=== PATIENT | female | born 1965 | race Caucasian/White ===

== ENCOUNTER 2017-03-21 09:30 | Emergency (ER) | payer MEDICAID, SELFPAY ==
[2017-03-21 10:00] VITALS: BP 100/78; PULSE 122; RESP 20; TEMP 37.1; O2SAT 97; BMI 36.8
--- NOTE | 2017-03-21 10:08 | HMH.EDUTC ---
[facility] [place] Disposition Clinical Impression: Uvulitis Disposition: Home, Self-Care Condition on Discharge: Good Instructions: DI for Pharyngitis/Tonsillopharyngitis -- Adult Additional Instructions: * Start antibiotic DAY and be sure to take as ordered for the FULL length of time although you should start to feel better in 24-48 hours. * change toothbrush and toothpaste 24-48 hours after starting antibiotic * Monitor Temp. Tylenol every 4 hours as needed no more then 5 times a day or 4000mg in 24 hours and/or ibuprofen every 6 hours as needed no more then 3200mg in 24 hours (as long as your primary care doctor has told you that it is ok to take both) for fever/aches/pain. ER if fever no less than 101 despite tylenol and Ibuprofen * Encourage fluids, water, gatorade, powerade, pedialyte if /toddler/child * cold fluids, popsicles, ice cream feel good * * Your throat swab was sent for culture. Those results are typically sent to your primary care. Be sure to follow up in 2-3 days if no improvement so they can review those results and treat if necessary. If you don't have primary care, I recommend you get one but in the mean time, you will have to return to a walk in clinic. Prescriptions: Amoxicillin [Amoxicillin 875MG Tab] 875 mg PO Q12H #20 tab Referrals: Geoffrey Brar [Primary Care Provider] - (IMMEDIATELY for new or worsening symptoms OR no noticeable improvement over the next 48-72 hours. 911 for difficulty breathing or swallowing.) Time of Disposition: 10:17 Medical Decision Making Vital Signs: 03/21/17 10:00 Temperature 98.8 F Temperature Source Oral Pulse Rate [Right Brachial] 122 H Respiratory Rate 20 Blood Pressure [Right Arm] 100/78 Blood Pressure Mean [Right Arm] 85 Blood Pressure Source [Right Arm] Automatic Cuff Blood Pressure Position [Right Arm] Sitting 02 Sat by Pulse Oximetry 97 Oxygen Delivery Method Room Air - Lab Data Flu A neg Flu B neg Strep neg - Edin Inquiry Pt receiving controlled substance: No [facility] [place] HPI - General Stated complaint: congested sore throat cough Time Seen by Provider: 03/21/17 09:50 Mode of Arrival: Ambulatory Source of Information: Patient Limitations: No Limitations Description of Symptoms (Recalled from Triage Doc. by RN): Sore throat, body aches, cough x 3 days HEENT Symptoms (Recalled from RN notes): Yes Resp Symptoms (Recalled from RN notes): Yes Skin Symptoms (Recalled from RN notes): No MS Symptoms (Recalled from RN notes): No Functional Status (Recalled from RN notes): na - History of Present Illness Provider Complaint: c/o mainly my throat . Woke up Tuesday, 2 days ago, with scratchy throat. Developed into mild nonprod cough as well. Woke up yesterday w/ really sore throat, aches, chills. Cough unchanged. Tylenol/ibuprofen not helping w/ sore throat. Worried about strep. Has not had flu vaccine. No known sick contacts. - Related Data Previous Rx's Medication Instructions Recorded Amoxicillin [Amoxicillin 875MG Tab] 875 mg PO Q12H #20 tab 03/21/17 Allergies Allergy/AdvReac Type Severity Reaction Status Date / Time No Known Allergies Allergy Verified 03/21/17 10:05 - Worker's Comp Is this a Worker's Comp case?: No Is this an [employer] Worker's Comp?: No Is this a [facility] Worker's Comp?: No [facility] History I have reviewed the patient's past medical history: Yes (arthritis, depression) Medical History: Reports:: Gastroesophageal Reflux Disease, Hyperlipidemia Other Surgeries: Yes: Tubal Ligation, Other (lei, back 2002) - *Social History Smoking Status: Current every day smoker Tobacco Type: cigarettes Alcohol Intake: never - Psychiatric History Expresses thoughts of harming self/others: None Suicide Plan Description: No Plan ROS Obtained: Yes Systems reviewed as appropriate & no additional complaints - Constitutional Reports anorexia ( a little , drinking well), Reports body ache(s), Reports fatigue, Denies chills, Denies feve
--- NOTE | 2017-03-21 10:11 | ED_ITS ---
[facility] [place] Clinical Impression: Uvulitis Disposition: Home, Self-Care Condition on Discharge: Good Instructions: DI for Pharyngitis/Tonsillopharyngitis -- Adult Additional Instructions: * Start antibiotic DAY and be sure to take as ordered for the FULL length of time although you should start to feel better in 24-48 hours. * change toothbrush and toothpaste 24-48 hours after starting antibiotic * Monitor Temp. Tylenol every 4 hours as needed no more then 5 times a day or 4000mg in 24 hours and/or ibuprofen every 6 hours as needed no more then 3200mg in 24 hours (as long as your primary care doctor has told you that it is ok to take both) for fever/aches/pain. ER if fever no less than 101 despite tylenol and Ibuprofen * Encourage fluids, water, gatorade, powerade, pedialyte if /toddler/ child * cold fluids, popsicles, ice cream feel good * * Your throat swab was sent for culture. Those results are typically sent to your primary care. Be sure to follow up in 2-3 days if no improvement so they can review those results and treat if necessary. If you don't have primary care , I recommend you get one but in the mean time, you will have to return to a walk in clinic. Prescriptions: Amoxicillin [Amoxicillin 875MG Tab] 875 mg PO Q12H #20 tab Referrals: Geoffrey Brar [Primary Care Provider] - (IMMEDIATELY for new or worsening symptoms OR no noticeable improvement over the next 48-72 hours. 911 for difficulty breathing or swallowing.) Time of Disposition: 10:17 Medical Decision Making Vital Signs: 03/21/17 10:00 Temperature 98.8 F Temperature Source Oral Pulse Rate [Right Brachial] 122 H Respiratory Rate 20 Blood Pressure [Right Arm] 100/78 Blood Pressure Mean [Right Arm] 85 Blood Pressure Source [Right Arm] Automatic Cuff Blood Pressure Position [Right Arm] Sitting 02 Sat by Pulse Oximetry 97 Oxygen Delivery Method Room Air - Lab Data Flu A neg Flu B neg Strep neg - Edin Inquiry Pt receiving controlled substance: No [facility] [place] - General Stated complaint: congested sore throat cough Time Seen by Provider: 03/21/17 09:50 Mode of Arrival: Ambulatory Source of Information: Patient Limitations: No Limitations Description of Symptoms (Recalled from Triage Doc. by RN): Sore throat, body aches, cough x 3 days HEENT Symptoms (Recalled from RN notes): Yes Resp Symptoms (Recalled from RN notes): Yes Skin Symptoms (Recalled from RN notes): No MS Symptoms (Recalled from RN notes): No Functional Status (Recalled from RN notes): na - History of Present Illness Provider Complaint: c/o mainly my throat . Woke up Tuesday, 2 days ago, with scratchy throat. Developed into mild nonprod cough as well. Woke up yesterday w / really sore throat, aches, chills. Cough unchanged. Tylenol/ibuprofen not helping w/ sore throat. Worried about strep. Has not had flu vaccine. No known sick contacts. - Related Data Previous Rx's Medication Instructions Recorded Amoxicillin [Amoxicillin 875MG Tab] 875 mg PO Q12H #20 tab 03/21/17 Allergies Allergy/AdvReac Type Severity Reaction Status Date / Time No Known Allergies Allergy Verified 03/21/17 10:05 - Worker's Comp Is this a Worker's Comp case?: No Is this an [facility] Worker's Comp?: No Is this a [facility] Worker's Comp?: No [facility] History I have reviewed the patient's past medical history: Yes (arthritis, depression) Medical Hi
[2017-03-21 10:18] LABS: UTC Influenza A Antigen Negative (Negative); UTC Influenza B Antigen Negative (Negative)
[2017-03-21 10:19] LABS: UTC Strep Screen (Rapid) Negative (Negative)
== END 2017-03-21 10:31 | disposition home or self-care (01) ==
PROVIDERS: Emergency Provider Nurse Practitioner Family; Family Provider Internal Medicine; PCP Internal Medicine
DX: K12.2 Cellulitis and abscess of mouth (principal); F17.210 Nicotine dependence, cigarettes, uncomplicated
CPT/HCPCS: 87275; 87276; 87430; 87804; 87880; 99202

== ENCOUNTER → 2017-04-28 11:32 | Outpatient (CLI) | payer MEDICAID, SELFPAY ==
[2017-04-28 13:12] LABS: Thyroid Stimulating Hormone 1.82 uIU/ml (0.358-3.740)
[2017-04-28 15:45] LABS: Hematocrit 40.8 % (37.0-47.0); Mean Corpuscular Hemoglobin 27.4 pg (27.0-31.2); Mean Corpuscular Volume 85.7 fl (81-99); Red Blood Count 4.76 M/mm3 (4.20-5.40); White Blood Count 11.4 K/mm3 (4.8-10.8)
[2017-04-28 15:46] LABS: Basophils % 0.3 % (0.1-2.0); Eosinophils # 0.1 K/mm3 (0.0-0.4); Eosinophils % 1.1 % (0.1-12.0); Lymphocytes % 19.7 K/mm3 (10-50); Monocytes # 0.8 K/mm3 (0.1-1.0); Monocytes % 6.7 % (1.7-9.3); Neutrophils # 8.2 K/mm3 (1.8-7.8); Platelet Count 318 K/mm3 (142-424); Red Cell Distribution Width 12.6 % (11.5-17.5)
== END ==
PROVIDERS: PCP Internal Medicine; Visit Provider Obstetrics & Gynecology
DX: N93.8 Other specified abnormal uterine and vaginal bleeding (principal); R10.2 Pelvic and perineal pain; Z01.419 Encounter for gynecological examination (general) (routine) without abnormal findings
CPT/HCPCS: 36415; 84443; 85025

== ENCOUNTER → 2017-05-02 12:58 | Outpatient (CLI) | payer MEDICAID, SELFPAY ==
--- NOTE | 2017-05-02 13:03 | US_ITS ---
US transvaginal HISTORY: Dysfunctional uterine bleeding ITS.REASON: dub, pelvic pain ORDERING PHYSICIAN: Osmani Damico MD PATIENT AGE: 51 years COMPARISON: None FINDINGS: The uterus is 10 x 5.5 x 7.2 cm with a combined endometrial thickness of 18 mm. No obvious uterine mass. The left ovary is 4.7 x 3.7 x 5.3 cm and contains a 3.6 cm cyst. The right ovary is 2.4 x 1.7 cm. and has an unremarkable appearance. No cul-de-sac fluid. IMPRESSION: 1. Enlarged uterus with thickened endometrium 2. 3.6 cm left ovarian cyst
== END ==
PROVIDERS: Family Provider Internal Medicine; PCP Internal Medicine; Visit Provider Obstetrics & Gynecology
DX: N93.8 Other specified abnormal uterine and vaginal bleeding (principal); R10.2 Pelvic and perineal pain
CPT/HCPCS: 76830

== ENCOUNTER → 2017-05-31 08:45 | Outpatient (CLI) | payer MEDICAID, SELFPAY ==
[2017-05-31 08:47] LABS: Microscopic, Urine URINE MICROSCOPIC (MICROSCOPIC)
[2017-05-31 09:20] LABS: Basophils % 0.4 % (0.1-2.0); Eosinophils # 0.2 K/mm3 (0.0-0.4); Eosinophils % 1.7 % (0.1-12.0); Hematocrit 42.3 % (37.0-47.0); Hemoglobin 13.2 g/dL (12.2-16.2); Lymphocytes # 2.3 K/mm3 (0.7-4.5); Mean Corpuscular HGB Conc 31.1 g/dL (31.8-35.4); Mean Corpuscular Hemoglobin 26.9 pg (27.0-31.2); Mean Corpuscular Volume 86.2 fl (81-99); Mean Platelet Volume 8.4 fl (7.4-10.4); Monocytes # 0.6 K/mm3 (0.1-1.0); Monocytes % 6.6 % (1.7-9.3); Neutrophils # 6.5 K/mm3 (1.8-7.8); Neutrophils % 67.4 % (37.0-80.0); Platelet Count 294 K/mm3 (142-424); Red Cell Distribution Width 12.7 % (11.5-17.5); White Blood Count 9.6 K/mm3 (4.8-10.8)
[2017-05-31 09:25] LABS: Appearance,Urine CLEAR (Clear); Bilirubin,Urine Negative (Negative); Blood, Urine 2+ (Negative); Color,Urine YELLOW (Yellow); Glucose,Urine (UA) Negative (Negative); Ketones,Urine Negative (Negative); Leukocyte Esterase,Urine Negative (Negative); Nitrate,Urine Negative (Negative); Protein,Urine Negative (Negative); Specific Gravity, Urine 1.025 (1.005-1.030); Urobilinogen,Urine 0.2 EU/dl (0.2)
[2017-05-31 09:28] LABS: Alanine Aminotransferase 23 U/L (12-78); Albumin Level 3.6 gm/dL (3.4-5.0); Albumin/Globulin Ratio 0.9 (1.1-1.8); Alkaline Phosphatase 125 U/L (46-116); Aspartate Amino Transferase 11 U/L (15-37); Bilirubin,Total 0.3 mg/dL (0.2-1.0); Blood Urea Nitrogen 14 mg/dL (7-18); Calcium 8.7 mg/dL (8.5-10.1); Carbon Dioxide 26 mmol/L (21.0-32.0); Chloride 105 mmol/L (98-107); Creatinine,Serum 0.68 mg/dL (0.55-1.02); Estimated Glomerular Filt Rate 91 ml/min (>60); GFR (African American) 110 ML/MIN (>60); Globulin 3.9 gm/dl (1.3-3.2); Glucose 110 mg/dL (74-106); Sodium 139 mmol/L (136-145); Total Protein,Serum 7.5 gm/dL (6.4-8.2)
[2017-05-31 10:38] LABS: WBC,Urine Occasional #/hpf (0-3)
[2017-05-31 10:39] LABS: Bacteria,Urine 3+ /lpf; Mucus,Urine 1+ /lpf; Squamous Epithelial Cell,Urine 20-50 #/hpf (0-5)
== END ==
PROVIDERS: Visit Provider Obstetrics & Gynecology
DX: Z01.818 Encounter for other preprocedural examination (principal); N93.8 Other specified abnormal uterine and vaginal bleeding; N83.209 Unspecified ovarian cyst, unspecified side
CPT/HCPCS: 36415; 80053; 81001; 85025; 87086

== ENCOUNTER 2017-06-09 06:02 | Day surgery (SDC) | payer MEDICAID, SELFPAY ==
[2017-06-07 15:05] VITALS: BMI 37.8
[2017-06-09] VITALS (14 sets, daily range): BP systolic 103–151; BP diastolic 50–82; PULSE 86–102; RESP 16–20; TEMP 36.2–36.6; O2SAT 95–98
--- NOTE | 2017-06-09 06:47 | HMH.ANESCL ---
[facility] Anesthesia Checklist - Patient Identification Patient Identification: Arm Band - Structural Data Admitted From: Home Consent for Planned Operative Procedure(s) Verified: Yes Verified Documents: Surgical Consent, History and Physical - NPO Status Verified Time NPO: 00:00 - Additional verifications Patient : No Anesthesia Reactions: No - Airway Assessment C-Spine Mobility Assessed: Yes TMJ Mobility Assessed: Yes Dentition: Good Dentition (Missing teeth) - Neurological Assessment Level of Consciousness: Awake Hx Seizures: No Numbness or tingling in extremities: No - Anesthesia Plan Anesthesia Risk discussed: Yes Anesthesia Plan: Verified ASA Class: III Anesthesia Type: General [facility] Anesthesia HX I have reviewed the patient's past medical history: Yes Medical History: Reports:: Depression, Gastroesophageal Reflux Disease(GERD), Hyperlipidemia Denies:: Cancer, Diabetes Mellitus Type 1, Diabetes Mellitus Type 2, Internal Pacemaker, MRSA, Seizures Other Medical History: Reports: Other Comment: MAYELA, Obesity Other Surgeries: Yes: Tubal Ligation, Other. No: Pacemaker Amputation: No Fractures: Yes (ribs & foot) *Family Hx:: No significant family history
[2017-06-09 07:07] LABS: HCG Qualitative, Serum Negative (Negative)
--- NOTE | 2017-06-09 08:16 | HMH.OPNOTE ---
Date of procedure: 06/09/17 Pre-op Diagnosis:: 1. Dysfunctional uterine bleeding. 2. Left ovarian cyst. Post-op Diagnosis:: 1. Dysfunctional uterine bleeding. 2. Right ovarian cyst. Procedure performed:: 1. Diagnostic hysteroscopy. 2. Fractional dilatation and curettage. 3. Diagnostic laparoscopy. 4. Aspiration of right ovarian cyst. Surgeon:: Osmani Damico MD ELECTRICAL LOGGING ENGINEER:: Ricky Persaud Anesthesia: GETA Estimated blood loss (mL): 20 Operative findings:: 1. Endometrial hyperplasia. 2. Right ovarian cyst. Operative note:: After the patient was prepped and draped in usual fashion and general anesthesia was administered, examination under anesthesia revealed a symmetrically enlarged anteverted uterus, with no palpable adnexal masses. A weighted speculum was placed within the posterior fourchette of the vagina, and the anterior lip of cervix was grasped with a single-tooth tenaculum. A small curette was introduced into the endocervix, with retrieval of a small amount of mucoid tissue. The uterus was then sounded in an anteverted direction to 9 cm, and easily dilated to #20 Hegar dilators. Using 1.5% glycine as a distending medium, and operating hysteroscope was introduced into the abdominal cavity. The tissue appeared hyperplastic, but there were no distinct polyps or tumors. A sharp curette was introduced into the endometrial cavity, with retrieval of a large amount of hyperplastic dense tissue. Reintroduction of the hysteroscope revealed no further pathology. A HUMI uterine elevator was then inserted into the endocervix, and the bulb inflated for easy uterine manipulation during the laparoscopy. After appropriate regloving, the skin on either side of the umbilicus was tented up with towel clips. A small incision was made in the base the umbilicus with a knife, and a Veress needle was inserted into the abdominal cavity. After a demonstration of negative pressure, an adequate pneumoperitoneum was created with carbon dioxide gas. The Veress needle was then replaced with a trocar and cannula, using the Book[employer]ott[employer] system, and the trocar placed with the laparoscope. The uterus was symmetrically enlarged. There was a small leiomyoma on its dorsal surface. Each stitch followed out to its fimbriated end. Each tube showed evidence of previous ligation with plastic rings. The left ovary appeared completely normal (it was described as cystic on ultrasound). The right ovary, which had been described as normal on ultrasound, contained a 4 cm clear cyst. Rest of the pelvis and abdomen was inspected and found to be normal. Using a needle aspirator, the right ovarian cyst was aspirated for a small amount of clear fluid. There was no undue bleeding. The fluid was suctioned, and the pneumoperitoneum was reduced by suction. The instruments were removed under direct visualization. The HUMI was deflated and removed. The skin incision was infused with a dilute solution of Marcaine, as a local anesthetic, and closed with a statically suture of 3-0 Vicryl. The wound was appropriately dressed. The sponge and needle counts correct. The estimated blood loss was 20 cc. The patient tolerated the procedure well, and was taken to PACU in excellent condition. She will be discharged today, if her vital signs are stable. Condition: stable Disposition: same day Specimens:: Uterine curettings Complications:: None
--- NOTE | 2017-06-09 08:31 | HMH.ANESI ---
[facility] Anesthesia Record Part I Intake, IV Amount: 650 Estimated blood loss (mL): 10 Urine output (mL): 50 Blood Products used (#): none Blood Pressure: 151/82 SaO2: 97 Pulse Rate: 86 Respiratory Rate: 18 Temperature: 97.5 F Patient is:: Drowsy, Nasal O2, Stable Stable to PACU at:: 08:24
--- NOTE | 2017-06-09 08:32 | HMH.ANESII ---
[facility] Anesthesia Record Part II Discharge Time: 08:54 Destination: Surgical Day Care (OP Surgery) PACU nurse assessment reviewed?: Yes Patient Condition:: Good Anesthesia Complications:: None
[2017-06-09 09:36] LABS: Hematocrit 38.5 % (37.0-47.0); Hemoglobin 12.1 g/dL (12.2-16.2)
--- NOTE | 2017-06-09 12:08 | PC.NURSE ---
0858: Patient, eyes are closed moaning stating shes in pain. VSOrtiz Pickard CRNA called and will be seeing patient per MD orders.
--- NOTE | 2017-06-09 12:16 | PC.NURSE ---
0913: Ortiz Persaud COLLAR CLOSER LOCKSTITCH at bedside at 0905, new orders obtained for nausea and pain. Per Anesthesia give nausea medication first.
== END 2017-06-09 10:25 | disposition home or self-care (01) ==
LOC: OR 06:03
PROVIDERS: Family Provider Internal Medicine; PCP Internal Medicine; Visit Provider Obstetrics & Gynecology
PROC: 0UDB8ZZ Extraction of Endometrium, Via Natural or Artificial Opening Endoscopic (ICD-10-PCS; CPT 58558; principal; 2017-06-09 07:30)
PROC: (CPT 49320; 2017-06-09 07:30)
DX: N93.8 Other specified abnormal uterine and vaginal bleeding (principal); N83.201 Unspecified ovarian cyst, right side
CPT/HCPCS: 49322; 58558; 36415; 84703; 85014; 85018; 93005; 96372; 96374; J0131; J2405

== ENCOUNTER → 2017-09-13 10:10 | Outpatient (POV) | payer MEDICAID, SELFPAY | PROVIDERS: Visit Provider Otolaryngology | DX: Z00.00 Encounter for general adult medical examination without abnormal findings (principal) ==

== ENCOUNTER → 2017-10-24 10:48 | Outpatient (CLI) | payer MEDICAID, SELFPAY ==
--- NOTE | 2017-10-24 10:57 | FL_ITS ---
FL barium swallow modified: 10/24/2017 10:57 AM CLINICAL HISTORY: Dysphasia, reflux ORDERING PHYSICIAN: Mulu Machado MD PATIENT AGE: 52 years Comparison: None TECHNIQUE: Patient administered varying consistencies of barium contrast, while viewed in lateral position under real-time fluoroscopy with cine recording. FLUOROSCOPY TIME: 2 minutes and 15 seconds The study was performed in conjunction with speech pathologist. Please see that report & recommendations. FINDINGS: Patient was given varying consistencies of barium. There was no evidence of aspiration, penetration, stasis or other significant anomalies IMPRESSION: Unremarkable modified barium swallow Please see speech pathologist report and recommendations.
--- NOTE | 2017-10-24 11:39 | HMH.SLMBS2 ---
Speech & Language Evaluation Speech/Language Mod Barium Swallow Start: 10/24/17 11:31 Freq: once Status: Complete Protocol: Document 10/24/17 11:31 HAYDEN (Rec: 10/24/17 11:38 HAYDEN [id number]) MBS Recommendations Diet Dietary Recommendations Regular Thin Liquids Comment No aspiration or penetration during MBS. Regular diet. Referrals/Other Recommended Referrals GI Consult Other Recommendations Pt reports waking from sleep out of breath and losing her breath often. Mod Barium Swallow Impressions Summary and Impressions Oral Phase Impression No Impairment (WFL) Pharyngeal Phase Impression No Impairment (WFL) Speech/Language MBS Assessment/Goals/Plan Assessment Date of Evaluation: 10/24/17 Evaluation Type Initial Certification Assessment/Problems Pt reports feeling of food piling up in her throat when eating and drinking. She also reports Does Patient Qualify for Service No Qualify/Failure Comment Pt. displayed no aspiration or penetration of consistancies presented duirng today's assesement. Recommendations PHYSICIAN CERTIFICATION: The specified therapy services are required, authorized, and reviewed every 30 days. Diet Recommendations Normal Liquid Type Recommendations Normal/Thin Dysphagia Swallow Precautions/Strategies Sitting Upright (90 deg) Plan Pt/Guardian verbally ack understanding Yes of dx/prognosis/goals Pt/Guardian verbally ack understanding Yes of/consent to tx prog G -code Required No Education Instructions provided Pt verbalized understanding of findings. Pt/Caregiver able to recall information Able to recall/restate Reinforcement needed No Mod Barium Swallow Setup Exam Setup Belkys Calderon Level of Consciousness Awake Alert Appropriate Follows Commands Position (degrees) 90 Comment Pt was visably upset by being in a closed in space during the assessment. She verbally stated she was uncomfortable but wanted to continue test. Mod Barium Swallow-Lat View Oral Phase Labial Closure No Impairment (WFL) Bolus Formation Pooling L/R No Impairment (WFL) Bolus Formation under Tongue No Impairment (WFL) Bolus Formation S
== END ==
PROVIDERS: Family Provider Internal Medicine; Visit Provider Otolaryngology
DX: R13.14 Dysphagia, pharyngoesophageal phase (principal); K21.9 Gastro-esophageal reflux disease without esophagitis
CPT/HCPCS: 70371; 92611

== ENCOUNTER → 2018-05-02 09:09 | Outpatient (CLI) | payer MEDICAID, SELFPAY ==
[2018-05-02 10:00] LABS: Basophils # 0.1 K/mm3 (0-0.2); Basophils % 0.5 % (0.1-2.0); Eosinophils # 0.2 K/mm3 (0.0-0.4); Eosinophils % 2.4 % (0.1-12.0); Hematocrit 36.6 % (37.0-47.0); Hemoglobin 11.4 g/dL (12.2-16.2); Lymphocytes # 2.3 K/mm3 (0.7-4.5); Lymphocytes % 25.4 % (10-50); Mean Corpuscular HGB Conc 31.3 g/dL (31.8-35.4); Mean Corpuscular Hemoglobin 25.6 pg (27.0-31.2); Mean Corpuscular Volume 81.8 fl (81-99); Monocytes # 0.7 K/mm3 (0.1-1.0); Monocytes % 7.3 % (1.7-9.3); Neutrophils # 5.9 K/mm3 (1.8-7.8); Neutrophils % 64.4 % (37.0-80.0); Platelet Count 280 K/mm3 (142-424); Red Blood Count 4.47 M/mm3 (4.20-5.40); Red Cell Distribution Width 14.6 % (11.5-17.5); White Blood Count 9.2 K/mm3 (4.8-10.8)
[2018-05-02 11:24] LABS: Thyroid Stimulating Hormone 2.39 uIU/ml (0.358-3.740)
== END ==
PROVIDERS: Visit Provider Obstetrics & Gynecology
DX: N93.8 Other specified abnormal uterine and vaginal bleeding (principal)
CPT/HCPCS: 36415; 84443; 85025

== ENCOUNTER → 2018-05-04 09:17 | Outpatient (CLI) | payer MEDICAID, SELFPAY ==
--- NOTE | 2018-05-04 09:19 | US_ITS ---
US transvaginal HISTORY: Abnormal heavy bleeding ITS.REASON: DUB ORDERING PHYSICIAN: Osmani Damico MD PATIENT AGE: 52 years Comparison: FINDINGS: The uterus is 10 x 5 x 7 cm with a combined endometrial thickness of 16 mm. The endometrium has homogeneous echogenicity. There is a 1 cm nabothian cysts. No uterine mass evident. The left ovary is 3 x 1.7 cm. The right ovary is 3 x 2.6 cm and contains a 1.9 cm cyst. No cul-de-sac fluid. IMPRESSION: 1. Enlarged uterus with thickened endometrium 2. Small right ovarian cyst
== END ==
PROVIDERS: PCP Internal Medicine; Visit Provider Obstetrics & Gynecology
DX: N93.8 Other specified abnormal uterine and vaginal bleeding (principal)
CPT/HCPCS: 76830

== ENCOUNTER → 2018-05-29 16:45 | Outpatient (CLI) | payer MEDICAID, SELFPAY ==
[2018-05-29 16:53] LABS: Microscopic, Urine URINE MICROSCOPIC (MICROSCOPIC)
--- NOTE | 2018-05-29 17:23 | XR_ITS ---
XR chest 2V HISTORY: ITS.REASON: HYPERTENSION ORDERING PHYSICIAN: Osmani Damico MD PATIENT AGE: 52 years Technique: PA and lateral chest COMPARISON: . Rib series from 05/10/2016 Also CXR 2 view from 2008 FINDINGS: The lungs are well expanded & clear. Nothing definitely acute. Very Subtle coarsening of markings infrahilar region on left more so than right but this has been seen previously and appears to be a stable feature. The heart is normal in size lacy and mediastinal structures are satisfactory. Chest wall and T-spine appears stable. No pleural effusion. No pneumothorax. IMPRESSION Stable chest with nothing definitely acute.
[2018-05-29 18:08] LABS: Appearance,Urine CLEAR (Clear); Bilirubin,Urine Negative (Negative); Blood, Urine Negative (Negative); Color,Urine YELLOW (Yellow); Glucose,Urine (UA) Negative (Negative); Ketones,Urine Negative (Negative); Leukocyte Esterase,Urine Negative (Negative); Nitrate,Urine Negative (Negative); Protein,Urine Negative (Negative); Specific Gravity, Urine 1.025 (1.005-1.030); Urobilinogen,Urine 0.2 EU/dl (0.2)
[2018-05-29 18:09] LABS: Basophils # 0.1 K/mm3 (0-0.2); Basophils % 0.5 % (0.1-2.0); Eosinophils # 0.1 K/mm3 (0.0-0.4); Eosinophils % 1.4 % (0.1-12.0); Hematocrit 35.1 % (37.0-47.0); Hemoglobin 11.2 g/dL (12.2-16.2); Lymphocytes # 2.7 K/mm3 (0.7-4.5); Lymphocytes % 26.2 % (10-50); Mean Corpuscular HGB Conc 31.8 g/dL (31.8-35.4); Mean Corpuscular Hemoglobin 25.8 pg (27.0-31.2); Mean Corpuscular Volume 81.2 fl (81-99); Mean Platelet Volume 8.3 fl (7.4-10.4); Monocytes # 0.7 K/mm3 (0.1-1.0); Monocytes % 6.7 % (1.7-9.3); Neutrophils # 6.7 K/mm3 (1.8-7.8); Neutrophils % 65.2 % (37.0-80.0); Platelet Count 308 K/mm3 (142-424); Red Blood Count 4.33 M/mm3 (4.20-5.40); Red Cell Distribution Width 14.4 % (11.5-17.5); White Blood Count 10.3 K/mm3 (4.8-10.8)
[2018-05-29 18:23] LABS: Bacteria,Urine Trace /lpf; RBC,Urine Occasional #/hpf (0-3)
[2018-05-29 18:52] LABS: HCG Qualitative, Serum Negative (Negative)
[2018-05-29 19:01] LABS: Alanine Aminotransferase 25 U/L (12-78); Albumin Level 3.8 gm/dL (3.4-5.0); Albumin/Globulin Ratio 1.1 (1.1-1.8); Alkaline Phosphatase 122 U/L (46-116); Anion Gap 15.6 mEq/L (5-15); Aspartate Amino Transferase 19 U/L (15-37); Bilirubin,Total 0.2 mg/dL (0.2-1.0); Blood Urea Nitrogen 14 mg/dL (7-18); Carbon Dioxide 25 mmol/L (21.0-32.0); Chloride 102 mmol/L (98-107); Creatinine,Serum 0.68 mg/dL (0.55-1.02); Estimated Glomerular Filt Rate 91 ml/min (>60); GFR (African American) 110 ML/MIN (>60); Globulin 3.5 gm/dl (1.3-3.2); Glucose 93 mg/dL (74-106); Potassium 3.6 mmoL/L (3.5-5.1); Sodium 139 mmol/L (136-145); Total Protein,Serum 7.3 gm/dL (6.4-8.2)
== END ==
PROVIDERS: Visit Provider Obstetrics & Gynecology
DX: Z01.818 Encounter for other preprocedural examination (principal); N93.8 Other specified abnormal uterine and vaginal bleeding
CPT/HCPCS: 36415; 71046; 80053; 81001; 84703; 85025; 93005

== ENCOUNTER 2020-02-28 14:17 | Emergency (ER) | payer OTHER, SELFPAY ==
[2020-02-28 14:30] VITALS: BP 149/83; PULSE 91; RESP 19; TEMP 36.9; O2SAT 98; BMI 37.8
--- NOTE | 2020-02-28 14:48 | HMH.EDUTC ---
[facility] [place] Disposition Clinical Impression: URI (upper respiratory infection) Qualifiers: URI type: unspecified URI Qualified Code(s): J06.9 - Acute upper respiratory infection, unspecified Disposition: Home, Self-Care Condition on Discharge: Good Instructions: Sore Throat Additional Instructions: *Monitor Temp, Over the counter Motrin or Tylenol as directed/as needed Tylenol every 4 hours and Motrin every 6 hours (as long as your family doctor has told you that you can take it) for fever or pain. and straight to ER if unable to lower temp less than 101.0 after medication given *Warm salt water gargles may help to soothe the throat *Throat Lozenges *Warm fluids like tea with honey may help to soothe the throat *Sleep elevated *Humidifier/Vaporizer *Flonase 2 sprays in each nostril daily but be aware that it may take 2-3 days before you notice improvement *Bromfed may cause drowsiness. Know how it effects you (your child) before driving, caring for small child, or sending your child to school. Not other antihistamines/allergy medications while taking bromfed Your throat swab was sent for culture. Those results are typically sent to your primary care. Be sure to follow up in 2-3 days with your family doctor/primary care physician if no improvement so they can review those result and treat if necessary. If you don?t have a primary care doctor, I recommend you get one but in the mean time, you will have to return to a walk in clinic Follow up IMMEDIATELY for new or worsening symptoms or no Noticeable improvement over the next 48-72 hours. 911 for difficulty breathing or swallowing You were tested for today for COVID19 your test result should be back in the next 24-48 hours, you may call to the [facility] to see if your test results are back in the next 48 hours [phone] [facility] hours are 9am-9pm You was given a handout with instructions for Self Quarantine and Self isolation for while you wait on test results and what to do if they are positive If you are positive the Health Dept will be contacting you also Referrals: Geoffrey Brar [Primary Care Provider] - As needed Time of Disposition: 15:14 Medical Decision Making - Edin Inquiry Pt receiving controlled substance: No Edin was queried for this patient: No Vital Signs: 02/28/20 14:30 02/28/20 15:17 Temperature 98.4 F 98.4 F Temperature Source Oral Pulse Rate 91 H Pulse Rate [Right Brachial] 91 H Respiratory Rate 19 19 Blood Pressure 149/83 H Blood Pressure [Right Arm] 149/83 H Blood Pressure Mean [Right Arm] 105 Blood Pressure Source [Right Arm] Automatic Cuff Blood Pressure Position [Right Arm] Sitting 02 Sat by Pulse Oximetry 98 Oxygen Delivery Method Room Air - Lab Data Lab results reviewed: Yes: I reviewed the patient's lab results. Orders (Tests/Meds): ED MEDICATIONS Discontinued Medications Generic Name Dose Route Start Last Admin Trade Name Freq PRN Reason Stop Dose Admin Ceftriaxone Sodium 1 gm 02/28/20 14:57 02/28/20 15:10 Ceftriaxone 1gm Vial IM 02/28/20 14:58 1 gm ONCE ONE Administration Protocol Lidocaine HCl 0 ml 02/28/20 14:57 02/28/20 15:10 Lidocaine 1% 5ml Pf Vial IM 02/28/20 14:58 2.1 ml ONCE ONE Administration Methylprednisolone Sodium Succinate 125 mg 02/28/20 14:57 02/28/20 15:10 Methylprednisolone Sod Succ 125mg Vial IM 02/28/20 14:58 125 mg ONCE ONE Administration [facility] [place] HPI - General Stated complaint: cough, sore throat, congestion Time Seen by Provider: 02/28/20 14:49 Mode of Arrival: Ambulatory Source of Information: Patient Limitations: No Limitations Description of Symptoms (Recalled from Triage Doc. by RN): PATIENT C/O SORE THROAT AND COUGH SINCE YESTERDAY HEENT Symptoms (Recalled from RN notes): Yes Resp Symptoms (Recalled from RN notes): Yes Skin Symptoms (Recalled from RN notes): No MS Symptoms (Recalled from RN notes): No Functional Status (Recalled from RN notes): WNL
[2020-02-28 15:17] VITALS: BP 149/83; PULSE 91; RESP 19; TEMP 36.9; O2SAT 98
[2020-02-28 19:04] LABS: UTC Strep Screen (Rapid) Negative (Negative)
== END 2020-02-28 15:19 | disposition home or self-care (01) ==
PROVIDERS: Emergency Provider Nurse Practitioner; PCP Internal Medicine
DX: J06.9 Acute upper respiratory infection, unspecified (principal); E78.5 Hyperlipidemia, unspecified; I10 Essential (primary) hypertension; K21.9 Gastro-esophageal reflux disease without esophagitis; Z79.899 Other long term (current) drug therapy; F17.210 Nicotine dependence, cigarettes, uncomplicated
CPT/HCPCS: 87880; 96372; 99202

== ENCOUNTER 2020-03-13 16:09 | Emergency (ER) | payer OTHER, SELFPAY ==
[2020-03-13 16:10] VITALS: BP 125/80; PULSE 87; RESP 20; TEMP 36.8; O2SAT 98; BMI 37.8
--- NOTE | 2020-03-13 16:58 | HMH.EDUTC ---
[facility] [place] Disposition Clinical Impression: Exposure to COVID-19 virus Disposition: Home, Self-Care Condition on Discharge: Good Instructions: DI for COVID-19 (Suspected or Confirmed ), Coronavirus Disease 2019, COVID-19: Testing and Tracing, Preventing the Spread of Coronavirus Discharge Instructions Additional Instructions: *Monitor Temp, Over the counter Motrin or Tylenol as directed/as needed Tylenol every 4 hours and Motrin every 6 hours (as long as your family doctor has told you that you can take it) for fever or pain. and straight to ER if unable to lower temp less than 101.0 after medication given Follow up IMMEDIATELY for new or worsening symptoms or no Noticeable improvement over the next 48-72 hours. 911 for difficulty breathing or swallowing You were tested for today for COVID19 your test result should be back in the next 24-48 hours, you may call to the [facility] to see if your test results are back in the next 48 hours [phone] [facility] hours are 9am-9pm You was given a handout with instructions for Self Quarantine and Self isolation for while you wait on test results and what to do if they are positive If you are positive the Health Dept will be contacting you also Referrals: Geoffrey Brar [Primary Care Provider] - As needed Time of Disposition: 16:59 Medical Decision Making - Edin Inquiry Pt receiving controlled substance: No Edin was queried for this patient: No Vital Signs: 03/13/20 16:10 Temperature 98.2 F Temperature Source Oral Pulse Rate [Left Brachial] 87 Respiratory Rate 20 Blood Pressure [Left Arm] 125/80 Blood Pressure Mean [Left Arm] 95 Blood Pressure Source [Left Arm] Automatic Cuff Blood Pressure Position [Left Arm] Sitting 02 Sat by Pulse Oximetry 98 Oxygen Delivery Method Room Air [facility] [place] HPI - General Stated complaint: covid test Time Seen by Provider: 03/13/20 16:58 Mode of Arrival: Ambulatory Source of Information: Patient Limitations: No Limitations Description of Symptoms (Recalled from Triage Doc. by RN): PATIENT REQUESTING COVID TEST D/T EXPOSURE; C/O SORE THROAT AND COUGH HEENT Symptoms (Recalled from RN notes): No Resp Symptoms (Recalled from RN notes): No Skin Symptoms (Recalled from RN notes): No MS Symptoms (Recalled from RN notes): No Functional Status (Recalled from RN notes): WNL - History of Present Illness Provider Complaint: Patient state that she has been having sore throat and cough on and off for over a week State that her son recently tested positive for COVID and she was around him over the holidays States that she has had sore throat and cough Denies known fever - Related Data Home Medications Medication Instructions Recorded Confirmed atorvastatin 20 mg tablet 20 mg PO DAILY tab 04/28/17 02/28/20 citalopram 20 mg tablet 20 mg PO DAILY tab 04/28/17 02/28/20 meloxicam 15 mg tablet 15 mg PO DAILY tab 04/28/17 02/28/20 Triamterene/Hydrochlorothiazid 1 each PO DAILY 05/31/18 02/28/20 [Dyazide 37.5-25 Capsule] lisinopriL [Lisinopril 2.5mg Tab] 2.5 mg PO DAILY 05/31/18 02/28/20 Buspirone HCl [Buspar 10mg 10 mg PO DAILY 02/28/20 02/28/20 tablet] Pantoprazole Sodium [Protonix 40mg 40 mg PO HS 02/28/20 02/28/20 tablet] Previous Rx's Medication Instructions Recorded amoxicillin 875 mg tablet 875 mg PO BID #20 tab 02/29/20 Allergies Allergy/AdvReac Type Severity Reaction Status Date / Time ciprofloxacin [From Cipro] Allergy Verified 08/23/19 09:03 azithromycin AdvReac Verified 08/23/19 09:03 - Worker's Comp Is this a Worker's Comp case?: No [facility] History - Hepatitis A Screen Drug use history?: No High risk sexual behaviors?: No History of sexually transmitted infection?: No Currently employed?: No Childcare worker?: No Do you have indoor plumbing?: Yes Do you have electricity?: Yes Attestation statement:: This patient has been screened for Hepatitis A risk factors. I have reviewed the patient's past medical his
[2020-03-13 17:14] VITALS: BP 125/80; PULSE 87; RESP 20; TEMP 36.8; O2SAT 98
--- NOTE | 2020-03-14 09:31 | PC.NURSE ---
patient notified of positive covid test
== END 2020-03-13 17:15 | disposition home or self-care (01) ==
PROVIDERS: Emergency Provider Nurse Practitioner; PCP Internal Medicine
DX: U07.1 COVID-19 (principal); E78.5 Hyperlipidemia, unspecified; I10 Essential (primary) hypertension; K21.9 Gastro-esophageal reflux disease without esophagitis; F33.1 Major depressive disorder, recurrent, moderate; F17.210 Nicotine dependence, cigarettes, uncomplicated; Z88.1 Allergy status to other antibiotic agents; Z79.899 Other long term (current) drug therapy
CPT/HCPCS: 99202; G0463; U0003

== ENCOUNTER → 2021-02-24 15:15 | Outpatient (CLI) | payer OTHER, SELFPAY | PROVIDERS: Visit Provider Internal Medicine | DX: I10 Essential (primary) hypertension (principal); E78.5 Hyperlipidemia, unspecified; G47.33 Obstructive sleep apnea (adult) (pediatric) ==

== ENCOUNTER → 2021-03-09 10:14 | Outpatient (CLI) | payer OTHER, SELFPAY | PROVIDERS: PCP Internal Medicine; Visit Provider Internal Medicine | DX: U07.1 COVID-19 (principal) | CPT/HCPCS: C9803; U0003; U0005 ==

== ENCOUNTER 2021-03-11 09:52 | Outpatient (CLI) | payer OTHER, SELFPAY | END 2021-03-11 13:40 | PROVIDERS: PCP Internal Medicine; Visit Provider Internal Medicine | DX: U07.1 COVID-19 (principal); Z23 Encounter for immunization | CPT/HCPCS: 96365 ==

== ENCOUNTER → 2021-04-03 10:33 | Outpatient (CLI) | payer OTHER, SELFPAY ==
--- NOTE | 2021-04-03 10:42 | XR_ITS ---
FINAL REPORT CLINICAL HISTORY: Lower back pain that radiates down the Rt leg for 3 months Nki FINDINGS: LUMBAR SPINE Five views of the lumbar spine were obtained. There is no acute fracture or subluxation. Mild degenerative change with osteophytes are present. Mild vascular calcification is noted. IMPRESSION: Mild degenerative changes. Reviewed, Interpreted and Dictated by Nehemiah Steele III, MD Transcribed by Juani Hong Authenticated by Nehemiah Steele III, MD on 04/03/2021 11:48:22 AM [facility]
== END ==
PROVIDERS: PCP Internal Medicine; Visit Provider Internal Medicine
DX: M54.50 Low back pain, unspecified (principal); M54.31 Sciatica, right side
CPT/HCPCS: 72110

== ENCOUNTER 2021-04-20 11:00 | Outpatient (RCR) | payer OTHER, SELFPAY | END 2021-04-20 11:05 | disposition home or self-care (01) | LOC: PT 11:00 | PROVIDERS: Visit Provider Internal Medicine | DX: M54.50 Low back pain, unspecified (principal); M54.31 Sciatica, right side | CPT/HCPCS: 97010; 97012; 97014; 97110; 97163; G0283 ==

== ENCOUNTER → 2021-08-25 13:07 | Outpatient (CLI) | payer OTHER, SELFPAY ==
[2021-08-25 15:17] LABS: Basophils # 0.1 K/mm3 (0-0.2); Basophils % 1.1 % (0.1-2.0); Eosinophils # 0.2 K/mm3 (0.0-0.4); Eosinophils % 2.1 % (0.1-12.0); Hematocrit 42.8 % (37.0-47.0); Lymphocytes % 28.2 % (10-50); Mean Corpuscular HGB Conc 32.7 g/dL (31.8-35.4); Mean Corpuscular Hemoglobin 28.1 pg (27.0-31.2); Mean Corpuscular Volume 85.8 fl (81-99); Mean Platelet Volume 10.5 fl (7.4-10.4); Monocytes # 0.7 K/mm3 (0.1-1.0); Monocytes % 9.3 % (1.7-9.3); Neutrophils # 4.2 K/mm3 (1.8-7.8); Neutrophils % 59.4 % (37.0-80.0); Platelet Count 306 K/mm3 (142-424); Red Blood Count 4.99 M/mm3 (4.20-5.40); Red Cell Distribution Width 13.3 % (11.5-17.5); White Blood Count 7.1 K/mm3 (4.8-10.8)
[2021-08-25 15:31] LABS: Alanine Aminotransferase 20 U/L (12-78); Albumin/Globulin Ratio 1.3 (1.1-1.8); Alkaline Phosphatase 120 U/L (38-126); Anion Gap 14.3 mEq/L (5-15); Aspartate Amino Transferase 24 U/L (14-36); Bilirubin,Total 0.3 mg/dl (0.2-1.3); Blood Urea Nitrogen 13 mg/dl (7-17); Calcium 9.1 mg/dl (8.4-10.2); Carbon Dioxide 25 mmol/L (22.0-30.0); Chloride 102 mmol/L (98-107); Chol/HDL Ratio 4.3 (1-3.5); Cholesterol 143 mg/dl (140-200); Estimated Glomerular Filt Rate 87 ml/min (>60); GFR (African American) 105 ML/MIN (>60); Globulin 3.1 g/dL (1.3-3.2); Glucose 78 mg/dl (74-100); HDL Cholesterol 33 mg/dl (40-60); Potassium 4.3 mmoL/L (3.5-5.1); Sodium 137 mmol/L (136-145); Total Protein,Serum 7.1 g/dl (6.3-8.2); Triglycerides 145 mg/dl (30-150); VLDL Cholesterol 29 mg/dL (0-40)
[2021-08-25 15:42] LABS: Direct LDL Cholesterol 79.37 mg/dL (100-129)
[2021-08-25 16:01] LABS: Thyroid Stimulating Hormone 1.98 uIU/mL (0.465-4.68)
== END ==
PROVIDERS: PCP Internal Medicine; Visit Provider Internal Medicine
DX: E78.5 Hyperlipidemia, unspecified (principal); K21.9 Gastro-esophageal reflux disease without esophagitis; Z79.899 Other long term (current) drug therapy
CPT/HCPCS: 80053; 80061; 84443; 85025

== ENCOUNTER → 2022-02-24 11:57 | Outpatient (CLI) | payer OTHER, SELFPAY ==
[2022-02-24 12:55] LABS: Alanine Aminotransferase 24 U/L (12-78); Albumin Level 4.2 g/dl (3.5-5.0); Albumin/Globulin Ratio 1.4 (1.1-1.8); Alkaline Phosphatase 140 U/L (38-126); Anion Gap 12.6 mEq/L (5-15); Aspartate Amino Transferase 27 U/L (14-36); Bilirubin,Total 0.2 mg/dl (0.2-1.3); Blood Urea Nitrogen 27 mg/dl (7-17); Calcium 9.3 mg/dl (8.4-10.2); Carbon Dioxide 28 mmol/L (22.0-30.0); Chloride 103 mmol/L (98-107); Chol/HDL Ratio 4.5 (1-3.5); Cholesterol 147 mg/dl (140-200); Estimated Glomerular Filt Rate 74 ml/min (>60); GFR (African American) 90 ML/MIN (>60); Globulin 2.9 g/dL (1.3-3.2); Glucose 83 mg/dl (74-100); HDL Cholesterol 33 mg/dl (40-60); Potassium 4.6 mmoL/L (3.5-5.1); Sodium 139 mmol/L (136-145); Total Protein,Serum 7.1 g/dl (6.3-8.2); Triglycerides 142 mg/dl (30-150); VLDL Cholesterol 28 mg/dL (0-40)
[2022-02-24 13:08] LABS: Direct LDL Cholesterol 87.98 mg/dL (100-129)
== END ==
PROVIDERS: PCP Internal Medicine; Visit Provider Internal Medicine
DX: I10 Essential (primary) hypertension (principal); E78.5 Hyperlipidemia, unspecified; F41.9 Anxiety disorder, unspecified; G47.33 Obstructive sleep apnea (adult) (pediatric)
CPT/HCPCS: 80053; 80061

== ENCOUNTER → 2022-06-15 14:53 | Outpatient (CLI) | payer OTHER, SELFPAY ==
--- NOTE | 2022-06-15 15:03 | XR_ITS ---
FINAL REPORT TECHNIQUE: Chest PA & Lateral CLINICAL HISTORY: DYSPNEA COMPARISON: May 2018 FINDINGS: 2 views of the chest were performed. The heart size is normal. The mediastinum is within normal limits. There is no acute cardiopulmonary process. There are no pleural effusions. There is no pneumothorax. The bony thorax appears intact. IMPRESSION: No acute cardiopulmonary process. Reviewed, Interpreted and Dictated by Yovanny Rush MD Transcribed by Gagandeep Fung Authenticated and . [facility]
--- NOTE | 2022-06-15 15:35 | ECG_ITS ---
APPROVED REPORT Exam: Resting ECG HR:97 bpm ECG Measurements Heart Rate [address] 162 P 75 QRSd 84 QRS 71 QT 355 T 6 QTc 409 Conclusion SINUS RHYTHM NONSPECIFIC ST & T-WAVE ABNORMALITY BORDERLINE ECG UNCONFIRMED REPORT Electronically signed by : Ricky Gaona MD 06/15/2022 21:13:19
[2022-06-15 16:20] LABS: Basophils # 0.2 K/mm3 (0-0.2); Basophils % 1.5 % (0.1-2.0); Eosinophils # 0.2 K/mm3 (0.0-0.4); Eosinophils % 1.5 % (0.1-12.0); Hematocrit 41.2 % (37.0-47.0); Hemoglobin 13.2 g/dL (12.2-16.2); Lymphocytes # 2.9 K/mm3 (0.7-4.5); Lymphocytes % 28.9 % (10-50); Mean Corpuscular HGB Conc 32.1 g/dL (31.8-35.4); Mean Corpuscular Hemoglobin 27.8 pg (27.0-31.2); Mean Corpuscular Volume 86.6 fl (81-99); Mean Platelet Volume 8.9 fl (7.4-10.4); Monocytes # 0.7 K/mm3 (0.1-1.0); Monocytes % 7.3 % (1.7-9.3); Neutrophils # 6.2 K/mm3 (1.8-7.8); Platelet Count 283 K/mm3 (142-424); Red Blood Count 4.75 M/mm3 (4.20-5.40); Red Cell Distribution Width 13.3 % (11.5-17.5); White Blood Count 10.1 K/mm3 (4.8-10.8)
[2022-06-15 16:23] LABS: Alanine Aminotransferase 30 U/L (12-78); Albumin Level 4.4 g/dl (3.5-5.0); Albumin/Globulin Ratio 1.4 (1.1-1.8); Alkaline Phosphatase 128 U/L (38-126); Anion Gap 11.1 mEq/L (5-15); Aspartate Amino Transferase 27 U/L (14-36); Bilirubin,Total 0.5 mg/dl (0.2-1.3); Blood Urea Nitrogen 17 mg/dl (7-17); Carbon Dioxide 31 mmol/L (22.0-30.0); Chloride 100 mmol/L (98-107); Cholesterol 152 mg/dl (140-200); Estimated Glomerular Filt Rate 87 ml/min (>60); GFR (African American) 105 ML/MIN (>60); Globulin 3.2 g/dL (1.3-3.2); Glucose 85 mg/dl (74-100); HDL Cholesterol 38 mg/dl (40-60); Potassium 4.1 mmoL/L (3.5-5.1); Sodium 138 mmol/L (136-145); Total Protein,Serum 7.6 g/dl (6.3-8.2); Triglycerides 169 mg/dl (30-150); VLDL Cholesterol 34 mg/dL (0-40)
[2022-06-15 16:40] LABS: Free T4 (Free Thyroxine) 0.95 ng/dl (0.78-2.19)
[2022-06-15 16:54] LABS: Thyroid Stimulating Hormone 3.79 uIU/mL (0.465-4.68)
== END ==
PROVIDERS: PCP Internal Medicine; Visit Provider Internal Medicine
DX: R06.09 Other forms of dyspnea (principal); R00.0 Tachycardia, unspecified; I10 Essential (primary) hypertension; E78.5 Hyperlipidemia, unspecified
CPT/HCPCS: 36415; 71046; 80053; 80061; 84439; 84443; 85025; 93005

== ENCOUNTER → 2022-06-24 09:31 | Outpatient (CLI) | payer OTHER, SELFPAY | PROVIDERS: PCP Internal Medicine; Visit Provider Internal Medicine | DX: R06.09 Other forms of dyspnea (principal) | CPT/HCPCS: 93306 ==

== ENCOUNTER 2022-08-04 08:29 | Day surgery (SDC) | payer OTHER, SELFPAY ==
[2022-08-04] VITALS (16 sets, daily range): BP systolic 104–144; BP diastolic 53–78; PULSE 65–86; RESP 16–20; O2SAT 96–99; BMI 42.1
--- NOTE | 2022-08-04 07:06 | IR_ITS ---
APPROVED REPORT Patient Location: Outpatient PROCEDURES Right heart catheterization Left heart catheterization Left ventriculogram Selective coronary angiogram INDICATION Abnormal EKG, Pulmonary hypertension, Typical angina pectoris, Risk factors for coronary disease Informed consent was obtained prior to the procedure. COMPLICATIONS None Estimated Blood Loss: Less than 10 ml TECHNIQUE One percent lidocaine was used to anesthetize the right anterior aspect of the right wrist. The right radial artery was accessed via the Seldinger technique and a 6 Australian hydrophilic sheath was placed in the right radial artery. Following this one percent lidocaine was used to anesthetize the right anterior aspect of the right neck. The right internal jugular vein was accessed via the Seldinger technique and a 7 Australian sheath was placed in the right internal jugular vein. Following this an arterial cocktail was administered using 5000U heparin, 2.5 mg verapamil, 1mg Lidocaine and 800mcg nitroglycerin into the right radial sheath. A papa catheter was used to perform left heart catheterization left ventriculogram and selective coronary angiography while a Aline-Lorenzo catheter was used to perform right heart catheterization. Saturations were obtained in the pulmonary artery and right atrium. At the end of the procedure the arterial sheath was removed good hemostasis was achieved using Traclet band. Patient was transferred to the postop holding area in stable condition for venous sheath removal. ANGIOGRAPHIC RESULTS The left main artery Normal The left anterior descending artery Normal The circumflex artery Normal The right coronary artery Dominant normal The PERAZA ventriculogram reveals 65% The left ventricular end-diastolic pressure 20 mmHg Right atrial pressure 15 mmHg Right ventricular pressure 40/25 mmHg Pulmonary occlusion pressure 20 mmHg Right atrial saturation 73% Pulmonary saturation 71% Aortic saturation 96% Hemoglobin 14 Cardiac output Cardiac index IMPRESSION Normal coronary arteries Normal ejection fraction Mildly elevated left-sided filling pressures with mild pulmonary hypertension PLAN 1. Patient appears to have severe obstructive sleep apnea based on profound apnea during cardiac catheterization. Recommend sleep study 2. Treatment of diastolic dysfunction with loop diuretics 3. Refer to pulmonology 4. Referred to neurology for sleep study 5. Avoidance of carbonated drinks Electronically signed by : Gallo Brown MD 08/04/2022 11:11:24
[2022-08-04 09:25] LABS: Basophils % 0.4 % (0.1-2.0); Eosinophils # 0.2 K/mm3 (0.0-0.4); Eosinophils % 1.7 % (0.1-12.0); Hematocrit 42.8 % (37.0-47.0); Lymphocytes # 2.3 K/mm3 (0.7-4.5); Lymphocytes % 21.2 % (10-50); Mean Corpuscular HGB Conc 32.6 g/dL (31.8-35.4); Mean Corpuscular Hemoglobin 28.3 pg (27.0-31.2); Mean Platelet Volume 8.5 fl (7.4-10.4); Monocytes # 0.8 K/mm3 (0.1-1.0); Monocytes % 7.7 % (1.7-9.3); Neutrophils # 7.4 K/mm3 (1.8-7.8); Platelet Count 266 K/mm3 (142-424); Red Blood Count 4.92 M/mm3 (4.20-5.40); Red Cell Distribution Width 13.1 % (11.5-17.5); White Blood Count 10.7 K/mm3 (4.8-10.8)
[2022-08-04 09:33] LABS: Anion Gap 16.1 mEq/L (5-15); Blood Urea Nitrogen 19 mg/dl (7-17); Carbon Dioxide 29 mmol/L (22.0-30.0); Chloride 97 mmol/L (98-107); Creatinine Clearance Estimated 65 mL/min (50-200); Estimated Glomerular Filt Rate 74 ml/min (>60); GFR (African American) 90 ML/MIN (>60); Glucose 100 mg/dl (74-100); Potassium 4.1 mmoL/L (3.5-5.1); Sodium 138 mmol/L (136-145)
[2022-08-04 14:41] LABS: CATHL Arterial O2 SAT 71.4 % (90-100)
== END 2022-08-04 14:10 | disposition home or self-care (01) ==
PROVIDERS: PCP Internal Medicine; Visit Provider Internal Medicine
DX: I27.20 Pulmonary hypertension, unspecified (principal); R07.9 Chest pain, unspecified; E78.5 Hyperlipidemia, unspecified; F17.210 Nicotine dependence, cigarettes, uncomplicated; G47.33 Obstructive sleep apnea (adult) (pediatric); I10 Essential (primary) hypertension; I42.9 Cardiomyopathy, unspecified; Z79.899 Other long term (current) drug therapy
CPT/HCPCS: 80048; 82810; 85025; 93460; 99152; 99153; C1725; C1769; C1894; J1644; Q9967

== ENCOUNTER → 2022-09-07 14:46 | Outpatient (CLI) | payer OTHER, SELFPAY | PROVIDERS: PCP Internal Medicine; Visit Provider Nurse Practitioner Family | DX: G47.30 Sleep apnea, unspecified (principal); I42.8 Other cardiomyopathies; I10 Essential (primary) hypertension; R53.83 Other fatigue; R06.83 Snoring | CPT/HCPCS: G0399 ==

== ENCOUNTER → 2022-11-10 12:32 | Outpatient (CLI) | payer OTHER, SELFPAY | PROVIDERS: PCP Internal Medicine; Visit Provider Internal Medicine | DX: N12 Tubulo-interstitial nephritis, not specified as acute or chronic (principal); B96.29 Other Escherichia coli [E. coli] as the cause of diseases classified elsewhere | CPT/HCPCS: 87086; 87088; 87186 ==

== ENCOUNTER → 2022-11-10 23:52 | Outpatient (CLI) | payer OTHER, SELFPAY | PROVIDERS: PCP Internal Medicine; Visit Provider Internal Medicine | DX: N12 Tubulo-interstitial nephritis, not specified as acute or chronic (principal) ==

== ENCOUNTER → 2022-11-30 15:55 | Outpatient (CLI) | payer OTHER, SELFPAY ==
--- NOTE | 2022-11-30 16:01 | XR_ITS ---
FINAL REPORT CLINICAL HISTORY: SCIATICA, RT SIDED LBP, SX 20 YRS AGO FINDINGS: LUMBAR SPINE Three views demonstrate no acute fracture. There is moderate narrowing of the L5-S1 disc space with vacuum disc phenomenon. There is mild vascular calcification of the abdominal aorta. There is no malalignment. IMPRESSION: Degenerative change at L5-S1. Reviewed, Interpreted and Dictated by Yovanny Rush MD Transcribed by Juani Hong Authenticated and . [facility]
== END ==
PROVIDERS: PCP Internal Medicine; Visit Provider Internal Medicine
DX: M54.41 Lumbago with sciatica, right side (principal)
CPT/HCPCS: 72100

== ENCOUNTER 2023-01-20 13:00 | Outpatient (RCR) | payer OTHER, SELFPAY ==
--- NOTE | 2022-12-08 12:07 | HMH.PTOPEV ---
PT Outpatient Evaluation Rehab PT Outpatient Evaluation Start: 12/08/22 11:52 Freq: Status: Active Protocol: Document 12/08/22 11:53 LAURIE (Rec: 12/08/22 12:07 LAURIE [id number]) E-signed By Corby Humphrey, PT Outpatient Therapy Subjective History Subjective History Patient is a 57 year old female presenting to outpatient PT with reports of chronic LBP with RLE radicular symptoms. Symptoms of insidious onset with most recent exacerbation starting approx 4 months ago. Most recent imaging indicates Chief Complaint Pain,Stiff,Paresthesia Symptom Type Sharp,Dull Symptoms Relieved By Rest/Positioning Symptoms Aggravated By Standing,Bending/Stooping, Physical Activity,Walking, Lifting Level of pain today (0-10) 5 Pain scale - at its best (0-10) 5 Pain scale - at its worst (0-10) 9 Lumbopelvic Eval Posture Thoracic Spine Posture Standing Position Increased Kyphosis Lumbar Spine Posture Standing Position Increased Lordosis Assistive device Assistive Devices None / NA Palapation tenderness bilateral lumbar spinal tenderness Yes: L4-S1 3/4 paraspinal tenderness buttock tenderness Yes Accessory Movement L4 bilateral L5 bilateral S1 bilateral Range of Motion Lumbar Spine Active Flexion Range of 60 Motion (degrees) Lumbar Spine Active Extension Range of 9 Motion (degrees) Left Lumbar Spine Lateral Flexion Active 14 Range of Motion (degrees) Right Lumbar Spine Lateral Flexion 16 Active Range of Motion (degrees) Lumbar Spine ROM Limitations Soft Tissue Tightness,Bony Restriction Manual Muscle Test Bilateral Knee Extension Strength Grade 5 Normal Knee Flexion Strength Grade 5 Normal Hip Flexion Strength Grade 4 Good Extensor Hallucis Longus Strength Grade 5 Normal Ankle Dorsiflexion Strength Grade 5 Normal Gastronemius/Soleus Strength Grade 5 Normal Altered Sensation Right LE Dermatome Level L4,L5,S1 Comment Dull ache Special Tests Lumbar Spine Screen Positive Hip Boogie (BRIAN) Test Positive Left,Positive Right Hip Yoni Test Positive Left,Positive Right Hip Piriformis Test Positive Left,Positive Right Hip Bowstring (Cram) Test Positive Right Lumbar Long [place] Distraction Test/Manual Positive Traction Oswestry Index Section 1 Pain Intensity The pain comes and goes and is severe Section 2 Personal Care (Washing,Dresing) my way of washing or dressing even though it causes some pain Section 3 Lifting I can only lift very light weights at most Section 4 Walking I cannot walk at all without increasing pain Section 5 Sitting Pain prevents me from sitting for more than 1/2 hour Section 6 Standing I avoid standing because it increases the pain immediately Section 7 Sleeping Because of my pain, my normal night's sleep is less than 6 hours sleep Section 8 Social Life Pain has restricted my social life and I do not go out often Section 9 Traveling I get some pain when traveling , but none of my usual forms of travel m Section 10 Changing Degreee of Pain My pain is rapidly getting worse Score and Risk Level Oswestry Sc 34 Oswestry Risk Level Severe Disability Outpatient Therapy Assessment Impairments Problems/Impairmments Palpation Tenderness,Impaired Range of Motion,Impaired Strength,Impaired Endurance, Impaired Walking,Impaired Standing,Impaired Sitting, Impaired Driving,Impaired Lifting,Impaired Household Care,Impaired Squatting, Impaired Bending,Impaired Recreational Activities, Subjective C/O Pain Prognosis Rehab Potential Good Clinical Impression Consistent with Diagnosis Yes Short Term Goals Number of Weeks 2 Decrease Subjective C/O Pain Yes: 07/21 at worst Patient to be Ind w/ HEP Yes Dump Worker Goals Number of Weeks 4-6 Decreased Palpation Tenderness Yes: 03/17 Increase Range of Motion Yes: WNL Increase Strength Yes: 07/16 core stabilizers Increase Ability to Walk Yes: 30 min without difficulty Increase Ability to Stand Yes: Improve Ability For Household Care Yes Decrease Subjective C/O Pain Yes: 04/23 at worst Outpatient Therapy Plan of Care Treatment Plan May Include Therapeutic Exercise Including Home Yes Exercise Program Manual Therapy Techniques Yes Neuromuscular Re-education Yes Therapeutic Activities to Return to Yes Previous Functional/Work Level Gait Training Yes ADL/Self Care Education Yes Mechanical Traction Yes Dry Needling Yes Thermal Modalities Yes Electrical Stimulation Yes Ultrasound/Phonophoresis Yes Iontophoresis Yes Orthotics/Bracing/Splinting Yes Vasopneumatic Compression Pump Yes Massage Yes Eval/Re-Eval Yes Frequency Times per week 2 Duration Number of Weeks 4-6 Addendums This patient is a candidate for social No or vocational rehab? Patient/Guardian verbally acknowledges Yes understanding of treatment program and consents to further treatment? Patient/Guardian verbally acknowledges Yes understanding of diagnosis, prognosis and goals for treatment? Shoulder/Elbow Eval Shoulder Objective Measurements Elbow Objective Measurements PHYSICIAN CERTIFICATION: I certify the specified therapy services for Evelyn Ray Ashley are required, authorized, and reviewed every 30 days.
== END 2023-01-20 14:00 | disposition home or self-care (01) ==
LOC: PT 13:00
PROVIDERS: PCP Internal Medicine; Visit Provider Internal Medicine
DX: M54.50 Low back pain, unspecified (principal); M54.41 Lumbago with sciatica, right side
CPT/HCPCS: 97010; 97014; 97110; 97140; 97163; 97164; 97530; G0283

== ENCOUNTER → 2023-01-31 12:55 | Outpatient (CLI) | payer OTHER, SELFPAY ==
[2023-01-31 13:40] VITALS: PULSE 78; PULSE 80
--- NOTE | 2023-01-31 14:44 | CT_ITS ---
FINAL REPORT TECHNIQUE: Axial images were obtained from the lung apex to the mid abdomen by computed tomography. This study was performed with techniques to keep radiation doses as low as reasonably achievable (ALARA). Individualized dose reduction techniques using automated exposure control or adjustment of mA and/or kV according to the patient's size were employed. CLINICAL HISTORY: lung cancer screening. 1 pack a day smoker for 35 years. No history of cancer. No prior lung screening studies she stated. FINDINGS: CHEST CT LOW DOSE CTDI vol (mGy): 2.90 DLP (mGy-cm): 107.86 There is mild coronary artery calcification. There is no axillary adenopathy. There is no hilar or mediastinal adenopathy. The heart is normal in size. There is no pericardial or pleural effusion. Lung window images demonstrate no suspicious infiltrate or nodule. There are several calcified granulomas. Limited images of the upper abdomen reveal cholecystectomy. IMPRESSION: Lung RADS category 1. Recommend 12 month follow-up low-dose chest CT. Reviewed, Interpreted and Dictated by Nehemiah Steele III, MD Transcribed by Juani Hong Authenticated and [facility]
== END ==
PROVIDERS: PCP Internal Medicine; Visit Provider Internal Medicine Pulmonary Disease
DX: R06.09 Other forms of dyspnea (principal); F17.210 Nicotine dependence, cigarettes, uncomplicated
CPT/HCPCS: 71271; 94060; 94618; 94640; 94726; 94727; 94729

== ENCOUNTER 2023-03-21 07:29 | Outpatient (CLI) | payer OTHER, SELFPAY ==
--- NOTE | 2023-03-21 07:41 | MR_ITS ---
FINAL REPORT CLINICAL HISTORY: RIGHT SIDED LUMBAGO SCIATICA, previous back surgery, pain 22ml prohance injected FINDINGS: Multiplanar MR imaging of the lumbar spine was performed without and with contrast. On the sagittal T2-weighted images, abnormal decreased signal is seen at multiple levels. There are endplate changes at several levels. Fatty filum terminale is noted. The vertebral alignment is normal. There is no evidence of fracture. The conus is seen at approximately the L1 level and has an unremarkable appearance. L1-2: Annular disc bulge without significant canal stenosis or neuroforaminal narrowing. L2-3: Annular disc bulge. No significant canal stenosis or neuroforaminal narrowing is seen. L3-4: Annular disc bulge with mild bilateral neuroforaminal narrowing. L4-5: Annular disc bulge with small right paracentral annular tear and disc protrusion which contacts the right L5 nerve root. L5-S1: Annular disc bulge with facet arthropathy and moderate bilateral neuroforaminal narrowing. There is partial lumbarization of S1. No abnormal contrast enhancement is identified. IMPRESSION: Small paracentral annular tear and disc protrusion at L4-5 which contacts the right L5 nerve root. No abnormal contrast-enhancement. Reviewed, Interpreted and Dictated by Nehemiah Steele III, MD Transcribed by Shannon Pearce Authenticated and [facility]
[2023-03-21 08:03] LABS: Blood Urea Nitrogen 15 mg/dl (7-17); Estimated Glomerular Filt Rate 86 ml/min (>60); GFR (African American) 104 ML/MIN (>60)
[2023-03-21] MEDS: GADOTERIDOL INJ 17ML SYRINGE 22 ML IV (09:07)
[2023-03-21] MEDS: SODIUM CHLORIDE 0.9% 10ML SYR (RAD ONLY) 10 ML IV (09:07)
== END 2023-03-21 23:59 ==
PROVIDERS: PCP Internal Medicine; Visit Provider Internal Medicine
DX: M54.41 Lumbago with sciatica, right side (principal)
CPT/HCPCS: 72158; 76376; 82565; 84520; A9576

== ENCOUNTER → 2023-03-30 10:54 | Outpatient (POV) | payer OTHER, SELFPAY ==
[2023-03-30 12:33] VITALS: BP 133/56; PULSE 87; RESP 18; O2SAT 96; BMI 42.0
--- NOTE | 2023-03-30 13:16 | EXP.PAIN.OV ---
HPI Data of Consult Patient: new to practice Consult date: 03/30/23 Requesting Physician: Jennifer Arndt APRN Primary Care Provider: Geoffrey Brar MD Consult Narrative Reason for consult: Low back pain, right leg pain History of present illness: Ms. Ramirez is a 57 year old female who presents today as a new patient. She is referral from Dr. Brar's office. Today she rates her pain an 8 out of 10. Patient states her pain is all in her low back with radiating symptoms down her entire right leg. Patient states this has been going on for years and progressively worsened over time. Patient does state that she had surgery on a bulging disc back in 2002. Patient states that over time her pain has just worsened with symptoms down her entire right leg. She does describe this as a dull ache with numbness and tingling into the extremity. Patient does state the pain interferes with her ability perform activities of daily living such as cooking or cleaning or even simple ambulation. Patient states she cannot walk or stand for very long due to the pain. Patient has tried aagu-wdr-rmiqyzo Tylenol and ibuprofen along with heat and ice and topicals with minimal relief. Patient did just recently have physical therapy in January or February however it made her pain symptoms worse. Patient has had injections years ago and they did provide some improvement. Patient is interested in any help we may be able to provide. Her Edin has been reviewed and is appropriate. CC: Jennifer Arndt APRN [facility] Disclaimer: The information contained in this section may have been updated after the patient was seen, as this information can be updated by other users. Medical History Dyspnea on exertion Encounter for screening for malignant neoplasm of lung Hyperglycemia Morbid obesity 2 pound weight gain, waiting for Wegovy approval Morbid obesity Pulmonary emphysema Smoking greater than 30 pack years Surgical History History of cardiac cath History of cholecystectomy History of lumbar surgery History of tubal ligation Family History Other Cancer Social History (Updated 03/30/23 @ 12:37 by Vonda Guillaume RN) Smoking Status: Current every day smoker tobacco type: cigarettes packs per day: 1 alcohol intake: never substance use type: denies use current occupational status: unemployed Travel in the last 8 weeks: None household members: other housing: other marital status: current occupational exposures/hazards: No caffeine: Yes Review of Systems Review of Systems Review of systems:: pertinent systems reviewed and negative unless documented below Review of systems (narrative): Review of Systems: General: No recent weight changes, no fever, no sleep disturbances Respiratory: No cough, no shortness of air, no recurring pulmonary infections Cardiovascular/peripheral vascular: No chest pain, no palpitations, no edema, no shortness of breath Gastrointestinal: No new onset incontinence, normal bowel movements reported Genitourinary: No new onset incontinence Musculoskeletal: Low back pain, right leg pain Psychiatric: [Normal mood/affect] Neurological: [Denies weakness in extremities], [denies balance issues] Meds Home Medications and Allergies Home Medications Medication Instructions Recorded Confirmed Type atorvastatin 20 mg tablet (Lipitor) 20 mg PO DAILY Cholesterol 04/28/17 03/30/23 History citalopram 20 mg tablet (Celexa) 20 mg PO DAILY Anxiety 04/28/17 03/30/23 History meloxicam 15 mg tablet 15 mg PO DAILY Arthritis 04/28/17 03/30/23 History buspirone 10 mg tablet 10 mg PO DAILY . 02/28/20 03/30/23 History pantoprazole 40 mg tablet,delayed 40 mg PO HS GERD 02/28/20 03/30/23 History release aspirin 81 mg tablet,delayed See Rx Instructions .Route 10/18/22 03/30/23 Rx release .COMPLEX #90 tabs albuterol sulfate 90 mcg/actuation 2 puff inhalation QID PRN 11/22/22 03/30/23 Rx aerosol inhaler (ProAir HFA) shortness of breath or wheezing 90 days #8.5 grams semaglutide (weight loss) 0.25 0.25 mg (0.5 mL) SQ WEEKLY 4 weeks 12/30/22 03/30/23 Rx mg/0.5 mL subcutaneous pen #2 mL injector (Luz Elena) spironolactone 25 mg tablet 25 mg PO DAILY #30 tabs 02/01/23 03/30/23 Rx (Aldactone) cetirizine 10 mg tablet 10 mg PO DAILY 02/10/23 03/30/23 History cyclobenzaprine 10 mg tablet 10 mg PO DIRECTED PRN Pain 02/10/23 03/30/23 History lisinopril 5 mg tablet 2.5 mg PO DAILY 02/10/23 03/30/23 History New Prescriptions to Start Prescriptions: Allergies Allergy/AdvReac Type Severity Reaction Status Date / Time azithromycin AdvReac Abdominal Verified 02/08/23 14:58 Pain ciprofloxacin [From Cipro] AdvReac Abdominal Verified 02/08/23 14:58 Pain Objective Vital signs: Pulse Resp BP Pulse Ox O2 Del Method 87 18 133/56 L 96 Room Air 03/30/23 12:33 03/30/23 12:33 03/30/23 12:33 03/30/23 12:33 03/30/23 12:33 Narrative: Physical Exam: General: Alert and oriented x3, no acute distress, pleasant and cooperative Lungs: Respirations even and unlabored, symmetrical chest expansion Eyes: PERRL Musculoskeletal: Flexion and extension of lumbar [spine] somewhat guarded secondary to pain, [antalgic gait noted] positive right leg raise with decreased sensation to light touch and decreased reflexes Neurological: Speech clear, no gross sensory deficit Additional findings Additional findings: FINAL REPORT CLINICAL HISTORY: RIGHT SIDED LUMBAGO SCIATICA, previous back surgery, pain 22ml prohance injected FINDINGS: Multiplanar MR imaging of the lumbar spine was performed without and with contrast. On the sagittal T2-weighted images, abnormal decreased signal is seen at multiple levels. There are endplate changes at several levels. Fatty filum terminale is noted. The vertebral alignment is normal. There is no evidence of fracture. The conus is seen at approximately the L1 level and has an unremarkable appearance. L1-2: Annular disc bulge without significant canal stenosis or neuroforaminal narrowing. L2-3: Annular disc bulge. No significant canal stenosis or neuroforaminal narrowing is seen. L3-4: Annular disc bulge with mild bilateral neuroforaminal narrowing. L4-5: Annular disc bulge with small right paracentral annular tear and disc protrusion which contacts the right L5 nerve root. L5-S1: Annular disc bulge with facet arthropathy and moderate bilateral neuroforaminal narrowing. There is partial lumbarization of S1. No abnormal contrast enhancement is identified. IMPRESSION: Small paracentral annular tear and disc protrusion at L4-5 which contacts the right L5 nerve root. No abnormal contrast-enhancement. Reviewed, Interpreted and Dictated by Nehemiah Steele III, MD Transcribed by Shannon Pearce Authenticated and . [facility] Assessment and Plan *Assessment and plan (1) Degenerative disc disease, lumbar: Status: Acute Category: Medical Code(s): M51.36 - Other intervertebral disc degeneration, lumbar region (2) Lumbar radiculopathy: Status: Acute Category: Medical Code(s): M54.16 - Radiculopathy, lumbar region (3) Right leg pain: Status: Acute Category: Medical Code(s): M79.604 - Pain in right leg (4) Lumbar nerve root impingement: Status: Acute Category: Medical Code(s): M54.16 - Radiculopathy, lumbar region (5) Chronic pain syndrome: Status: Acute Category: Medical Code(s): G89.4 - Chronic pain syndrome Plan Patient is experiencing significant pain in her low back with radiating symptoms down into her right leg. Patient did have limited range of motion of her lumbar spine with a positive right leg raise and decreased sensation to light touch and decreased reflexes during today's visit. I have discussed with the patient that she may benefit from a right transforaminal epidural steroid injection. Risk and benefits were discussed with the patient and she would like to proceed forward with this plan of care. Patient is not on any blood thinners. Patient has tried and failed conservative therapy such as oral medication, heat and ice, topicals, physical therapy, at home stretching exercise for longer than 6 weeks and previous back surgery. Patient will be scheduled for a right transforaminal epidural steroid injection L4-L5 and L5-S1 under fluoroscopic guidance. Patient has been instructed to contact the clinic with any concerns before the next appointment. Dr. Raygoza has reviewed this note and agrees with this plan of care. This note was dictated using voice recognition software and make contain errors or omissions.
== END ==
LOC: SC.PAIN 10:55
PROVIDERS: PCP Internal Medicine; Visit Provider Nurse Practitioner Family
DX: M51.16 Intervertebral disc disorders with radiculopathy, lumbar region (principal); M79.604 Pain in right leg; G89.4 Chronic pain syndrome
CPT/HCPCS: 99202; G0463

== ENCOUNTER 2023-04-12 09:21 | Day surgery (SDC) | payer OTHER, SELFPAY ==
[2023-04-12 09:48] VITALS: BP 127/74; PULSE 89; RESP 16; TEMP 36.5; O2SAT 95; BMI 42.9
--- NOTE | 2023-04-12 10:10 | P.PCN_ITS ---
Procedure Date: 04/12/23 Time: 10:00 Anesthesiologist:: Boogie Mckeon CRNA Complications:: None Pre-procedure Diagnosis:: Degenerative disc lumbar spine multilevels. Lumbar radiculopathy. Multilevel disc bulge lumbar spine. Post-procedure Diagnosis:: Same. Indications for Procedure:: Patient is a very pleasant 57-year-old female comes our clinic today for right transforaminal epidural steroid injection L4-5, L5-S1. Patient's lumbar MRI shows annular tear with disc protrusion L4-5 which contacts the L5 nerve root. She reports low back pain off the midline to the right as well as right hip and leg radicular symptoms. She rates her pain 9/10. Procedure Details:: Details of the procedure were explained to the patient. The patient was taken the procedure room placed in the prone position. The area of the lumbar spine was cleansed using chlorhexidine as a cleansing solution. At this time using fluoroscopy guidance markers were placed on the right lateral border of the L4 and L5 vertebral body. The skin and subcutaneous tissue was anesthetized using 1% lidocaine and 25-gauge needle. At this time using a 22-gauge 3-1/2 inch spinal needle the right upper one third of the L4-5 foramen was accessed. The same was done at the right L5-S1 foramen. Needle positions were confirmed and a lateral view using fluoroscopy and contrast dye. At this time 1 cc of 1% lidocaine +20 mg of Depo-Medrol was injected at each level after negative aspiration. [place] were removed. Band-Aid applied. Patient tolerated the procedure without difficulty. There are no complications. Plan and Disposition:: Patient was discharged without incident.
[2023-04-12 10:13] VITALS: BP 123/60; PULSE 92; RESP 18; O2SAT 97
[2023-04-12] MEDS: LIDOCAINE 1% 5ML PF VIAL 5 ML (10:13)
[2023-04-12 10:14] VITALS: BP 123/60; PULSE 92; RESP 18; O2SAT 97
[2023-04-12 10:15] VITALS: BP 133/50; PULSE 79; RESP 18; O2SAT 95
--- NOTE | 2023-04-12 10:20 | EXP.PAIN.PRO ---
Procedure Date: 04/12/23 Time: 10:15 Anesthesiologist:: Boogie Mckeon CRNA Complications:: None Pre-procedure Diagnosis:: Degenerative disc lumbar spine multilevels. Lumbar radiculopathy. Degenerative disc cervical spine multilevels. Cervical radiculopathy. Cervical postlaminectomy syndrome. Post-procedure Diagnosis:: Same. Indications for Procedure:: Patient is a very pleasant 57-year-old female comes our clinic today for intrathecal pain pump interrogation and refill. Patient doing very well with her current settings. However, patient mentioning some increasing low back pain related to increased activity. Patient also reporting since the weather turned cold she has been having some increase in low back pain. She is requesting an increase in the rate of the intrathecal pain pump. I think this is reasonable. Will increase her rate by 5%. She is currently being managed with fentanyl 2400 mcg/mL at a rate of 432.6 mcg/ day. Procedure Details:: Details of the procedure explained to the patient. The patient taken procedure room placed in the seated position. The area of the pump is cleansed using chlorhexidine's cleansing solution. The pump was interrogated. The pump was accessed with ease using a 22-gauge inch and half needle. 8 mL of solution was withdrawn and discarded appropriate. The pump was then filled with 20 cc of a solution containing fentanyl 2400 mcg/mL. The rate will be increased by 5%. Her new rate will be 454.0 mcg/day. Patient tolerated procedure without difficulty. There are no complications. Plan and Disposition:: Patient was discharged without incident.
== END 2023-04-12 10:15 | disposition home or self-care (01) ==
PROVIDERS: PCP Internal Medicine; Visit Provider Nurse Anesthetist, Certified Registered
DX: M51.16 Intervertebral disc disorders with radiculopathy, lumbar region (principal); M51.26 Other intervertebral disc displacement, lumbar region
CPT/HCPCS: 64483; 64484; J1030

== ENCOUNTER → 2023-04-29 11:23 | Outpatient (POV) | payer OTHER, SELFPAY ==
--- OUTSIDE RECORDS SUMMARY | 2023-04-29 11:26 | XMS_ITS | Continuity of Care Document ---
Author Name Unknown Address [address], [place] [id number] Organization [facility] Phone Care Team Providers Care Wood Patternmaker Apprentice Name Role Phone ELVIRA JACKSON Admitting ELVIRA JACKSON Primary Attending NEEL CARDONA Primary Care [phone] ELVIRA JACKSON Unavailable TREATMENT PLAN DISCHARGE MEDICATIONS Status RXNORM Medication Dose Route Frequency Dates Comments U pdated By Patient discharge medication information is not available. PATIENT OPEN ORDERS Code System Description Frequency Occurrences Priority Start Date Ordering Physician Updated By NOREEN Whitman)SLEEP STUDY ONE TIME 0 Routine November 02, 2022 1:58:00 AM [facility] RENETTA FELIX STOCK CONTROL CLERK [id number] on November 02, 2022 1:58:00 AM [facility] SCHEDULED PROCEDURES Code System Description Status Scheduled Date Upd ated By Patient scheduled procedure information is not available. MEDICATIONS HOME MEDICATIONS Status RXNORM Medication Dose Route Frequency Dates Comments R eported By Updated By Drug Treatment Unknown DISCHARGE MEDICATIONS Status RXNORM Medication Dose Route Frequency Dates Comments Physic dion Updated By No Discharge Medication Info rmation Available INPATIENT MEDICATIONS Status RXNORM Medication Dose Route Frequency Rate Quantity Dates Comments Physician Updated By No Inpatient Medication Info rmation Available SOCIAL HISTORY SOCIAL HISTORY SNOMED-CT Social History Element Description Effective Dates Offered Cessation Comment UpdatedBy [id number] Smoking Status Unknown If Ever Smoked SOCIAL HISTORY - Gender Sex: Female SOCIAL HISTORY - Sexual Behavior Sexual Orientation Gender Identity SNOMED-CT Description SNO MED -CT Description Activity Level No of Partners Partner Type UpdatedBy HEALTH CONCERNS Problems Concern Status Health Concern problem infor mation not available. Smoking Status Status Years Used Consumed packs p er day Health Concern smoking histo ry information not available. Family History Concern Status Health Concern family histor y information not available. ENCOUNTERS ENCOUNTER INFORMATION Reason for Visit Not Specified Admission November 02, 2022 1:09:00 AM UTC B [facility] [address] [facility] [id number] Discharge November 02, 2022 1:09:00 PM UTC D ISCHARGED TO HOME OR SELF CARE ENCOUNTER DIAGNOSES Notes information is not bonifacio ilable. Code System Diagnosis Onset Date Diagnosis information is not available. ABSTRACT DIAGNOSES Code System Diagnosis Updated By R06.83 ICD10 SNORING [id number] on 2022 5:01:22 PM [place] CARE TEAM Care Wood Patternmaker Apprentice Role ELVIRA JACKSON Admitting ELVIRA JACKSON Primary Attending NEEL CARDONA Primary Care ELVIRA JACKSON Referring CARE TEAM CARE project controls scheduler Role on Team Status Start Date End Date Update d By DULCE Donaldson KOSHER SEALER PCP normal November 02, 2022 1:10:01 AM [place] November 02, 2022 1:09:00 PM [place] [id number] on November 02, 2022 1:10:01 AM [facility] RENETTA FELIX STOCK CONTROL CLERK Referring normal October 21, 2022 5:01:22 PM [place] November 02, 2022 1:09:00 PM [place] [id number] on November 02, 2022 1:10:01 AM [facility] RENETTA FELIX STOCK CONTROL CLERK Attending normal October 21, 2022 5:01:22 PM [place] November 02, 2022 1:09:00 PM [place] [id number] on November 02, 2022 1:10:01 AM [facility] RENETTA FELIX STOCK CONTROL CLERK Admitting normal October 21, 2022 5:01:22 PM UTC November 02, 2022 1:09:00 PM UTC [id number] on November 02, 2022 1:10:01 AM [facility]
--- OUTSIDE RECORDS SUMMARY | 2023-04-29 11:26 | XMS_ITS | Continuity of Care Document ---
Author Name Unknown Address [address] [place], [place] [id number] Organization [facility] Phone Care Team Providers Care Varnishing Unit Operator Name Role Phone ELVIRA JACKSON Admitting ELVIRA JACKSON Primary Attending [phone] NEEL CARDONA Primary Care ELVIRA JACKSON Unavailable TREATMENT PLAN DISCHARGE MEDICATIONS Status RXNORM Medication Dose Route Frequency Dates Comments U pdated By Patient discharge medication information is not available. PATIENT OPEN ORDERS Code System Description Frequency Occurrences Priority Start Date Ordering Physician Updated By NOREEN Whitman)SLEEP STUDY ONE TIME 0 Routine November 02, 2022 1:58:00 AM [facility] RENETTA FELIX CLOUD INFRASTRUCTURE ARCHITECT [id number] on November 02, 2022 1:58:00 AM [facility] SCHEDULED PROCEDURES Code System Description Status [...] Description Effective Dates Offered Cessation Comment UpdatedBy [id number] Smoking Status Unknown If Ever Smoked SOCIAL [...] Specified Admission November 02, 2022 1:09:00 AM [place] [facility] [address] [facility] [id number] Discharge November 02, 2022 1:09:00 PM [place] D ISCHARGED TO HOME OR SELF CARE ENCOUNTER DIAGNOSES Notes information is not bonifacio ilable. Code System Diagnosis Onset Date Diagnosis information is not available. ABSTRACT DIAGNOSES Code System Diagnosis Updated By R06.83 ICD10 SNORING [id number] on 2022 11:06:00 AM [place] R06.83 ICD10 SNORING [id number] on 2022 11:06:00 AM [place] R53.83 ICD10 OTHER FATIGUE [id number] on Oct 11:06:00 AM [place] Z86.69 ICD10 PERSONAL HISTORY OF OTHER DISEASES OF THE NERVOUS SYSTEM AND SENSE ORGANS [id number] on November 03, 2022 11:06:00 AM [facility] I27.20 ICD10 PULMONARY HYPERTENSION, UNSP ECIFIED [id number] on November 03, 2022 11:06:00 AM [facility] I10 ICD10 ESSENTIAL (PRIMARY) HYPERTEN DAVID [id number] on November 03, 2022 11:06:00 AM [facility] I42.9 ICD10 CARDIOMYOPATHY, UNSPECIFIED [id number] on November 03, 2022 11:06:00 AM [facility] E66.01 ICD10 MORBID (SEVERE) OBESITY DUE TO EXCESS CALORIES [id number] on November 03, 2022 11:06:00 AM [facility] Z68.41 ICD10 BODY MASS INDEX [BMI] 40.0-4 4.9, ADULT [id number] on November 03, 2022 11:06:00 AM [facility] CARE TEAM Care Varnishing Unit Operator Role ELVIRA JACKSON Admitting ELVIRA JACKSON Primary Attending NEEL CARDONA Primary Care ELVIRA JACKSON Referring CARE TEAM CARE valve grinder Role on Team Status Start Date End Date Update d By DULCE ROBERTP PCP normal November 02, 2022 1:10:01 AM [facility] November 01, 2022 4:00:00 AM [facility] [id number] on November 02, 2022 1:10:01 AM [facility] RENETTA FELIX APRN Referring normal October 21, 2022 5:01:22 PM [place] November 01, 2022 4:00:00 AM [facility] [id number] on November 02, 2022 1:10:01 AM [facility] RENETTA FELIX APRN Attending normal October 21, 2022 5:01:22 PM [facility] November 01, 2022 4:00:00 AM [facility] [id number] on November 02, 2022 1:10:01 AM [facility] RENETTA FELIX APRN Admitting normal October 21, 2022 5:01:22 PM [facility] November 01, 2022 4:00:00 AM [facility] [id number] on November 02, 2022 1:10:01 AM [facility]
[2023-04-29 11:49] VITALS: BP 143/86; PULSE 85; RESP 18; O2SAT 97; BMI 42.9
--- NOTE | 2023-04-29 12:05 | EXP.PAIN.SOA ---
[facility] Pain Management SOAP Note Subjective:: Patient is a pleasant 57-year-old female who presents today for follow-up of right transforaminal epidural steroid injection L4-L5 and L5-S1 on 03/30/2023. We are currently treating the patient for degenerative disc disease of lumbar spine with lumbar radiculopathy symptoms, right leg pain, lumbar nerve root impingement, chronic pain syndrome. Today she rates her pain a 8 out of 10. Patient denies any new trauma or injury. She does state that she did not notice any significant improvement following this injection. Patient states that it was very minimal but only lasted about 30 minutes. Patient states she continues to experience the same pain that does interfere with her ability perform activities of daily living such as cooking patient does state she had previous back surgery in the past that did not really improve her overall symptoms. Her Edin has been reviewed and is appropriate. Review of Systems: General: No recent weight changes, no fever, no sleep disturbances Respiratory: No cough, no shortness of air, no recurring pulmonary infections Cardiovascular/peripheral vascular: No chest pain, no palpitations, no edema, no shortness of breath Gastrointestinal: No new onset incontinence, normal bowel movements reported Genitourinary: No new onset incontinence Musculoskeletal: Low back pain, right leg. Psychiatric: [Normal mood/affect] Neurological: [Denies weakness in extremities], [denies balance issues] Objective:: Physical Exam: General: Alert and oriented x3, no acute distress, pleasant and cooperative Lungs: Respirations even and unlabored, symmetrical chest expansion Eyes: PERRL Musculoskeletal: Flexion and extension of lumbar [spine] somewhat guarded secondary to pain, [antalgic gait noted] Neurological: Speech clear, no gross sensory deficit Assessment:: Degenerative disc disease of lumbar spine with lumbar radiculopathy symptoms, lumbar nerve root impingement, lumbar spinal stenosis, chronic pain syndrome Plan:: Patient continues to experience significant pain in her low back with radiating symptoms into her right leg. I have discussed with the patient that I will send her for referral to Dr. Martinez's office in [place] for evaluation of her lumbar spine pain. I will also order the patient a compounded cream. Patient will return to clinic in 1 month for reevaluation of symptoms and plan of care. Patient has been instructed to contact the clinic with any concerns before the next appointment. Dr. Raygoza has reviewed this note and agrees with this plan of care. This note was dictated using voice recognition software and make contain errors or omissions. [facility] Disclaimer: The information contained in this section may have been updated after the patient was seen, as this information can be updated by other users. Medical History Dyspnea on exertion Encounter for screening for malignant neoplasm of lung Hyperglycemia Morbid obesity 2 pound weight gain, waiting for Wegovy approval Morbid obesity Pulmonary emphysema Smoking greater than 30 pack years Surgical History History of cardiac cath History of cholecystectomy History of lumbar surgery History of tubal ligation Family History Other Cancer Social History Smoking Status: Current every day smoker tobacco type: cigarettes packs per day: 1 alcohol intake: never substance use type: denies use current occupational status: unemployed Travel in the last 8 weeks: None household members: other housing: other marital status: current occupational exposures/hazards: No caffeine: Yes
== END ==
PROVIDERS: PCP Internal Medicine; Visit Provider Nurse Practitioner Family
DX: M51.16 Intervertebral disc disorders with radiculopathy, lumbar region (principal); M48.061 Spinal stenosis, lumbar region without neurogenic claudication; G89.4 Chronic pain syndrome
CPT/HCPCS: 99212; G0463

== ENCOUNTER 2023-05-25 13:21 | Outpatient (POV) | payer OTHER, SELFPAY ==
[2023-05-25 13:46] VITALS: BP 164/91; PULSE 86; RESP 18; O2SAT 97; BMI 42.9
--- NOTE | 2023-05-25 15:11 | EXP.PAIN.SOA ---
[facility] Pain Management SOAP Note Subjective:: Patient is a pleasant 57-year-old female who presents today for 1 month follow-up. Today she rates her pain an 8 out of 10. Patient denies any new trauma or injury or any change to location or type of pain she experiences. She states it still continues to be a chronic pain that runs from her low back down her entire right leg. Patient does state that she did have her upcoming appointment with Dr. Martinez this week however it had to end up being rescheduled due to an office meeting or something going on with him. She states her new appointment is on Tuesday. Patient is on compounding cream however she states she has tried it on 3 different occasions of her back and has not noticed significant relief. Her Edin has been reviewed and is appropriate. Review of Systems: General: No recent weight changes, no fever, no sleep disturbances Respiratory: No cough, no shortness of air, no recurring pulmonary infections Cardiovascular/peripheral vascular: No chest pain, no palpitations, no edema, no shortness of breath Gastrointestinal: No new onset incontinence, normal bowel movements reported Genitourinary: No new onset incontinence Musculoskeletal: Low back pain, right leg pain Psychiatric: [Normal mood/affect] Neurological: [Denies weakness in extremities], [denies balance issues] Objective:: Physical Exam: General: Alert and oriented x3, no acute distress, pleasant and cooperative Lungs: Respirations even and unlabored, symmetrical chest expansion Eyes: PERRL Musculoskeletal: Flexion and extension of lumbar [spine] somewhat guarded secondary to pain, [antalgic gait noted] Neurological: Speech clear, no gross sensory deficit Assessment:: Degenerative disc disease of lumbar spine with lumbar radiculopathy symptoms, right leg pain, lumbar nerve root impingement, chronic pain syndrome Plan:: I have discussed with the patient due to her chronic pain and is trying injections that do help however only last temporarily that she may be a beneficial candidate of a pain pump trial or a spinal cord stimulator trial. Risk and benefits were discussed with patient along with educational handouts given at today's visit. We will follow-up with the patient in 2 weeks following her appointment with Dr. Martinez's office for reevaluation of symptoms and plan of care. Patient has been instructed to contact the clinic with any concerns before the next appointment. Dr. Raygoza has reviewed this note and agrees with this plan of care. This note was dictated using voice recognition software and make contain errors or omissions. Addendum: Patient did follow-up with the [facility] neurosurgery and they are not recommending surgical intervention at this time. [facility] Disclaimer: The information contained in this section may have been updated after the patient was seen, as this information can be updated by other users. Medical History Pulmonary emphysema Morbid obesity 1 pound weight gain since last visit, difficulty obtaining Wegovy, has not followed up with prescribing provider Hyperglycemia Encounter for screening for malignant neoplasm of lung Dyspnea on exertion Smoking greater than 30 pack years Morbid obesity 2 pound weight gain, waiting for Wegovy approval Surgical History History of cardiac cath History of lumbar surgery History of tubal ligation History of cholecystectomy Family History Other Cancer Social History Smoking Status: Current every day smoker tobacco type: cigarettes packs per day: 1 alcohol intake: never substance use type: denies use current occupational status: unemployed Travel in the last 8 weeks: None household members: other housing: other marital status: current occupational exposures/hazards: No caffeine: Yes
== END 2023-05-25 23:59 ==
LOC: SC.PAIN 13:21
PROVIDERS: PCP Internal Medicine; Visit Provider Nurse Practitioner Family
DX: M51.16 Intervertebral disc disorders with radiculopathy, lumbar region (principal); M79.604 Pain in right leg; G89.4 Chronic pain syndrome
CPT/HCPCS: 99212; G0463

== ENCOUNTER 2023-06-08 14:11 | Outpatient (POV) | payer OTHER, SELFPAY ==
--- NOTE | 2023-06-08 14:57 | A.OFFVIS_ITS ---
[facility] Pain Management SOAP Note Subjective:: Patient is a pleasant 57-year-old female who presents today for 2-week follow- up. Today she rates her pain an 8 out of 10. She denies any new trauma or injury. She does state that she did end up going to the neurosurgery appointment with Dr. Martinez and he was not stating that she was a surgical candidate. She does state that she continues to have chronic pain in her low back that does radiate down her entire right leg. She states that even her buttocks is very tender. Patient states the pain is worsening over time and does interfere with her ability perform activities of daily living. Patient has tried injection therapy and feels like it was very temporary and short-lived as well as the compounded cream. Her Edin has been reviewed and is appropriate. Review of Systems: General: No recent weight changes, no fever, no sleep disturbances Respiratory: No cough, no shortness of air, no recurring pulmonary infections Cardiovascular/peripheral vascular: No chest pain, no palpitations, no edema, no shortness of breath Gastrointestinal: No new onset incontinence, normal bowel movements reported Genitourinary: No new onset incontinence Musculoskeletal: Low back pain, right leg pain, right buttocks pain Psychiatric: [Normal mood/affect] Neurological: [Denies weakness in extremities], [denies balance issues] Objective:: Physical Exam: General: Alert and oriented x3, no acute distress, pleasant and cooperative Lungs: Respirations even and unlabored, symmetrical chest expansion Eyes: PERRL Musculoskeletal: Flexion and extension of lumbar [spine] somewhat guarded secondary to pain, [antalgic gait noted] Neurological: Speech clear, no gross sensory deficit Assessment:: Degenerative disc disease of lumbar spine with lumbar radiculopathy symptoms, right leg pain, right buttocks pain Plan:: Patient continues to experience significant pain throughout her low back and right leg and buttocks. I have discussed with patient that I do still believe that she would be a beneficial candidate of a intrathecal pump trial or spinal cord stimulator trial. Patient was gone over the risk and benefits and at this time she still would like to wait. I have counseled the patient that there is no rash and it is up to her if she would like to try 1 of these options at a later date. Patient does have a heart history and sees Dr. Brown's office on a regular basis. I have counseled the patient that I will send in a prescription of tramadol 50 mg daily and provide a 1 month supply of this medication. Patient will return to clinic in 1 month for reevaluation of symptoms and plan of care. Patient has been instructed to contact the clinic with any concerns before the next appointment. Dr. Raygoza has reviewed this note and agrees with this plan of care. This note was dictated using voice recognition software and make contain errors or omissions. [facility] Disclaimer: The information contained in this section may have been updated after the patient was seen, as this information can be updated by other users. Medical History Pulmonary emphysema Morbid obesity 1 pound weight gain since last visit, difficulty obtaining Wegovy, has not followed up with prescribing provider Hyperglycemia Encounter for screening for malignant neoplasm of lung Dyspnea on exertion Smoking greater than 30 pack years Morbid obesity 2 pound weight gain, waiting for Wegovy approval Surgical History History of cardiac cath History of lumbar surgery History of tubal ligation History of cholecystectomy Family History Other Cancer Social History Smoking Status: Current every day smoker tobacco type: cigarettes packs per day: 1 alcohol intake: never substance use type: denies use current occupational status: unemployed Travel in the last 8 weeks: None household members: other housing: other marital status: current occupational exposures/hazards: No caffeine: Yes
[2023-06-08 15:49] VITALS: BP 132/62; PULSE 79; RESP 18; O2SAT 97; BMI 42.9
== END 2023-06-08 23:59 | disposition home or self-care (01) ==
PROVIDERS: PCP Internal Medicine; Visit Provider Nurse Practitioner Family
DX: M51.16 Intervertebral disc disorders with radiculopathy, lumbar region (principal); M79.604 Pain in right leg; M79.18 Myalgia, other site
CPT/HCPCS: 99212; G0463

== ENCOUNTER 2023-06-29 12:06 | Outpatient (CLI) | payer OTHER, SELFPAY ==
[2023-06-29 12:45] LABS: Basophils # 0.1 K/mm3 (0-0.2); Basophils % 0.8 % (0.1-2.0); Eosinophils # 0.2 K/mm3 (0.0-0.4); Eosinophils % 2.2 % (0.1-12.0); Hematocrit 41.2 % (37.0-47.0); Hemoglobin 13.7 g/dL (12.2-16.2); Lymphocytes # 2.3 K/mm3 (0.7-4.5); Lymphocytes % 30.2 % (10-50); Mean Corpuscular HGB Conc 33.2 g/dL (31.8-35.4); Mean Corpuscular Hemoglobin 28.9 pg (27.0-31.2); Monocytes # 0.6 K/mm3 (0.1-1.0); Monocytes % 8.5 % (1.7-9.3); Neutrophils # 4.5 K/mm3 (1.8-7.8); Neutrophils % 58.3 % (37.0-80.0); Platelet Count 263 K/mm3 (142-424); Red Blood Count 4.74 M/mm3 (4.20-5.40); Red Cell Distribution Width 12.7 % (11.5-17.5); White Blood Count 7.6 K/mm3 (4.8-10.8)
[2023-06-29 13:18] LABS: Chloride 110 mmol/L (98-107)
[2023-06-29 13:19] LABS: Potassium 4.5 mmoL/L (3.5-5.1); Sodium 140 mmol/L (136-145)
[2023-06-29 13:21] LABS: Alanine Aminotransferase 28 U/L (12-78); Alkaline Phosphatase 107 U/L (38-126); Anion Gap 8.5 mEq/L (5-15); Aspartate Amino Transferase 34 U/L (14-36); Bilirubin,Direct 0.5 mg/dl (0.0-0.4); Bilirubin,Indirect 0.4 mg/dL (0.0-0.9); Bilirubin,Total 0.9 mg/dl (0.2-1.3); Bilirubin,Unconjugated 0.4 mg/dL (0.0-1.1); Blood Urea Nitrogen 17 mg/dl (7-17); Carbon Dioxide 26 mmol/L (22.0-30.0); Cholesterol 156 mg/dl (140-200); Estimated Glomerular Filt Rate 86 ml/min (>60); GFR (African American) 104 ML/MIN (>60); Triglycerides 146 mg/dl (30-150); VLDL Cholesterol 29 mg/dL (0-40)
[2023-06-29 13:22] LABS: Albumin Level 4.1 g/dl (3.5-5.0); Calcium 9.5 mg/dl (8.4-10.2); Chol/HDL Ratio 4.5 (1-3.5); Glucose 101 mg/dl (74-100); HDL Cholesterol 35 mg/dl (40-60); Magnesium 1.9 mg/dl (1.6-2.3)
[2023-06-29 13:33] LABS: Direct LDL Cholesterol 93.87 mg/dL (100-129)
[2023-06-29 13:53] LABS: Thyroid Stimulating Hormone 1.19 uIU/mL (0.465-4.68)
[2023-06-29 15:26] LABS: Free T4 (Free Thyroxine) 1.03 ng/dl (0.78-2.19)
== END 2023-06-29 23:59 | disposition home or self-care (01) ==
LOC: LAB 12:07
PROVIDERS: PCP Internal Medicine; Visit Provider Nurse Practitioner
DX: E78.5 Hyperlipidemia, unspecified (principal); I10 Essential (primary) hypertension; I50.20 Unspecified systolic (congestive) heart failure; E66.01 Morbid (severe) obesity due to excess calories; G47.30 Sleep apnea, unspecified; I27.20 Pulmonary hypertension, unspecified; R94.31 Abnormal electrocardiogram [ECG] [EKG]; R06.09 Other forms of dyspnea; I42.9 Cardiomyopathy, unspecified
CPT/HCPCS: 36415; 80048; 80061; 80076; 83735; 84439; 84443; 85025

== ENCOUNTER 2023-07-06 14:08 | Outpatient (POV) | payer OTHER, SELFPAY ==
[2023-07-06 14:14] VITALS: BP 133/65; PULSE 96; RESP 16; O2SAT 97; BMI 42.9
--- NOTE | 2023-07-06 14:21 | A.OFFVIS_ITS ---
[facility] Pain Management SOAP Note Subjective:: Patient is a pleasant 57-year-old female who presents today for follow-up. Today she rates her pain a 7 out of 10. Patient denies any new trauma or injury. She does state that she continues to have the low back and right leg symptoms. She states that it continues to interfere with her daily life and activities. The patient at her last visit was given a tramadol 1 tablet/day and states that she really did not feel like this helped as well. Patient states that sometimes if she took in the morning then by the late afternoon she was already experiencing pain again. Patient denies any side effects from this medication. Her Edin has been reviewed and is appropriate. Review of Systems: General: No recent weight changes, no fever, no sleep disturbances Respiratory: No cough, no shortness of air, no recurring pulmonary infections Cardiovascular/peripheral vascular: No chest pain, no palpitations, no edema, no shortness of breath Gastrointestinal: No new onset incontinence, normal bowel movements reported Genitourinary: No new onset incontinence Musculoskeletal: Low back pain, right leg pain Psychiatric: [Normal mood/affect] Neurological: [Denies weakness in extremities], [denies balance issues] Objective:: physical Exam: General: Alert and oriented x3, no acute distress, pleasant and cooperative Lungs: Respirations even and unlabored, symmetrical chest expansion Eyes: PERRL Musculoskeletal: Flexion and extension of lumbar [spine] somewhat guarded secondary to pain, [antalgic gait noted] Neurological: Speech clear, no gross sensory deficit Assessment:: Degenerative disc disease of lumbar spine with lumbar radiculopathy right leg pain: Right buttocks pain Plan:: I have discussed with the patient that she may benefit from a straightforward lumbar epidural steroid injection. Risk and benefits were discussed with the patient and at this time she would like to wait due to how painful her last injection was. I have discussed with the patient that I will send in a 1 month supply of tramadol 50 mg twice daily. Patient was also reviewed that we still can see about down the route of trying the pump trial for a stimulator trial if she continues to not get any improvement with the medication or injection therapy. Patient will return to clinic in 1 month for reevaluation of symptoms and plan of care. Patient has been instructed to contact the clinic with any concerns before the next appointment. Dr. Raygoza has reviewed this note and agrees with this plan of care. This note was dictated using voice recognition software and make contain errors or omissions. [facility] Disclaimer: The information contained in this section may have been updated after the patient was seen, as this information can be updated by other users. Medical History (Updated 06/29/23 @ 11:46 by Brittany Cowan RN) Heart failure with reduced ejection fraction Pulmonary emphysema Morbid obesity Hyperglycemia Encounter for screening for malignant neoplasm of lung Dyspnea on exertion Smoking greater than 30 pack years Morbid obesity Surgical History History of cardiac cath History of lumbar surgery History of tubal ligation History of cholecystectomy Family History Other Cancer Social History Smoking Status: Current every day smoker tobacco type: cigarettes packs per day: 1 alcohol intake: never substance use type: denies use current occupational status: other Travel in the last 8 weeks: None household members: other housing: other marital status: current occupational exposures/hazards: No caffeine: Yes
== END 2023-07-06 23:59 | disposition home or self-care (01) ==
PROVIDERS: PCP Internal Medicine; Visit Provider Nurse Practitioner Family
DX: M51.16 Intervertebral disc disorders with radiculopathy, lumbar region (principal); M79.604 Pain in right leg; M79.18 Myalgia, other site
CPT/HCPCS: 99212; G0463

== ENCOUNTER 2023-07-26 09:52 | Outpatient (CLI) | payer OTHER, SELFPAY ==
--- NOTE | 2023-07-26 09:52 | MR_ITS ---
APPROVED REPORT Stakeholder Manager: CLINICAL INDICATION Cardiomyopathy evaluation, LVEF 40-50% on prior TTE from 06/2022 TECHNIQUE Image Acquisition: Cardiac magnetic resonance (CMR) was performed on Siemens Espree MRI 1.5T scanner. Software platform sequences were performed using the Siemens CloudLink Tech MR B19 platform. A set of three-plane, low-resolution, large [id number] localizers were initially acquired. Then axial, coronal, sagittal TrueFISP, as well as axial HASTE images, were obtained. These were followed by gated TrueFISP breathold cinematic sequences obtained in the short axis with 8 mm slices and 2 mm gaps, 2-chamber (vertical long axis), 3-chamber, 4-chamber (horizontal long axis). A bolus of contrast was injected intravenously with first-pass sequences obtained in the short axis and four-chamber planes. After approximately 10 minutes, a TI retail salesworker sequence was performed to determine the optimal TI time. Using the optimized TI time, delayed contrast enhancement segmented inversion???recovery TurboFLASH sequences were obtained in the short axis, 2-chamber, 3-chamber, and 4-chamber projections. 2D-velocity phase mapping was performed. Functional parameters were calculated by offline analysis on an independent workstation ([employer] Platform, [employer] Contrast: ProHance??? (Gadoteridol) FINDINGS MORPHOLOGY AND FUNCTION Left ventricle: The left ventricle is normal in size. The indexed left ventricular end-diastolic volume (LVEDVi) is 57 ml/m2 (reference range 57-105 ml/m2 in males, 56-96 ml/m2 in females). Low-normal left ventricular systolic function is present. There is normal left ventricular wall thickness. The septum is asynchronous. No other regional wall motion abnormalities are noted. LVEF is calculated at 50.8% (reference range 57-77%). Right ventricle: The right ventricle is normal in size. The indexed right ventricular end-diastolic volume (RVEDVi) is 62 ml/m2 (reference range 61-121 ml/m2 in males, 48-112 ml/m2 in females). Normal right ventricular systolic function is present. RVEF is calculated at 51.6% (reference range 52-72% in males, 51-71% in females). Atria: The left atrium is normal in size. The maximum indexed left atrial volume is 22 ml/m2 (reference range 26-52 ml/m2 in males, 27-53 ml/m2 in females). The right atrium is normal in size. The maximum indexed right atrial volume is 23 ml/m2 (reference range 18-90 ml/m2). Aorta: The diameter of the aortic annulus is normal, measuring 22 mm (coronal view reference range 21-30 mm in males, 19-27 mm in females). The diameter of the aortic sinus is normal, measuring 31 mm (coronal view reference range 25-42 mm in males, 24-36 mm in females). The diameter of the sinotubular junction is normal, measuring 23 mm (coronal view reference range 18-32 mm in males, 18-28 mm in females). The diameters of the ascending and descending thoracic aorta are normal. Main pulmonary artery: The main pulmonary artery diameter is normal. Pericardium: The pericardial thickness is normal. The pericardial thickness measures 2.0 cm (normal < 4.0 cm). There is no pericardial effusion. VALVES The valvular morphologies in the visualized sequences appear normal. There is no significant valvular stenosis or regurgitation of the mitral, aortic, tricuspid, or pulmonic valve noted visually. Systolic anterior motion of the mitral valve is not visualized. Ratio of pulmonary to systemic flow, Qp:Qs ratio = 1.4 (normal < or = 1.2, hemodynamically significant shunt > 1.5), demonstrating no evidence of hemodynamically significant shunt. TISSUE CHARACTERIZATION Resting Perfusion: Normal myocardial blood flow at rest. No evidence of resting hypoperfusion. Myocardial Fibrosis and/or edema: Normal gadolinium kinetics are present. No evidence of late gadolinium enhancement is noted, consistent with absence of myocardial scarring, infarction, or necrosis. T2-weighted imaging demonstrates no evidence of myocardial edema or inflammation. OTHER No other significant findings are noted. However, this exam is focused on the cardiac structure and function. IMPRESSION Normal LV size with low-normal LV systolic function. LVEDVi= 57 ml/m2 and LVEF= 50.8%. The septum is asynchronous. Normal RV size with normal RV systolic function. RVEDVi= 62 ml/m2 and RVEF= 51.6%. No atrial enlargement. No CMR evidence of myocardial scarring, infarction, or necrosis. No evidence of myocardial edema or inflammation. Perfusion analysis demonstrates normal blood flow at rest with no evidence of resting hypoperfusion. Ratio of pulmonary to systemic flow, Qp:Qs ratio = 1.4 (normal < or = 1.2, hemodynamically significant shunt > 1.5), demonstrating no evidence of hemodynamically significant shunt. Overall, this CMR demonstrates low-normal LV systolic function (LVEF 50.8%) with no evidence of cardiomyopathy. No evidence of myocardial scarring, fibrosis, or prior infarction. COMPARISON None CRITICAL RESULT None COMMUNICATION Per this written report The findings of this cardiac MR were reviewed, reported, and signed by Mason Wilkins MD (Hotel Security Officer). Conclusion Electronically signed by : Erica Wilkins MD 08/01/2023 00:21:50
[2023-07-26] MEDS: SODIUM CHLORIDE 0.9% 10ML SYR (RAD ONLY) 10 ML IV (11:55)
[2023-07-26] MEDS: SODIUM CHLORIDE 0.9% 50ML BAG 25 ML IV (11:55)
[2023-07-26] MEDS: GADOTERIDOL INJ 17ML SYRINGE 25 ML IV (11:55)
== END 2023-07-26 23:59 | disposition home or self-care (01) ==
LOC: RAD 09:52
PROVIDERS: PCP Internal Medicine; Visit Provider Nurse Practitioner
DX: R06.09 Other forms of dyspnea (principal); I42.8 Other cardiomyopathies; I44.7 Left bundle-branch block, unspecified; I50.20 Unspecified systolic (congestive) heart failure
CPT/HCPCS: 75561; A9576

== ENCOUNTER 2023-08-01 13:18 | Outpatient (POV) | payer OTHER, SELFPAY ==
[2023-08-01 13:36] VITALS: BP 125/44; PULSE 87; RESP 16; O2SAT 96; BMI 42.0
--- NOTE | 2023-08-01 14:02 | EXP.PAIN.SOA ---
[facility] Pain Management SOAP Note Subjective:: Patient is a pleasant 57-year-old female who presents today for 1 month follow-up. Today she rates her pain a 7 out of 10. Patient denies any new trauma or injury. She states she is no worse from her last visit. She states she she does still continue to have the low back and right leg symptoms. Patient was prescribed tramadol 50 mg twice a day however she states she really has only been taking it once a day. Patient denies any side effects from this medication however she states she is not sure how well it really does seem to work. Patient has been tried on tizanidine in the past with no additional improvement. She was also recently given a Tylenol 3 prescription. Her Edin has been reviewed and is appropriate. Review of Systems: General: No recent weight changes, no fever, no sleep disturbances Respiratory: No cough, no shortness of air, no recurring pulmonary infections Cardiovascular/peripheral vascular: No chest pain, no palpitations, no edema, no shortness of breath Gastrointestinal: No new onset incontinence, normal bowel movements reported Genitourinary: No new onset incontinence Musculoskeletal: Low back pain, right leg pain Psychiatric: [Normal mood/affect] Neurological: [Denies weakness in extremities], [denies balance issues] Objective:: Physical Exam: General: Alert and oriented x3, no acute distress, pleasant and cooperative Lungs: Respirations even and unlabored, symmetrical chest expansion Eyes: PERRL Musculoskeletal: Flexion and extension of lumbar [spine] somewhat guarded secondary to pain, [antalgic gait noted] Neurological: Speech clear, no gross sensory deficit Assessment:: Degenerative disc disease of lumbar spine with lumbar radiculopathy symptoms, right leg pain, right buttocks pain Plan:: At this time she does not need any refills on her tramadol. I will send in a 2-week dose of baclofen 5 mg twice daily as needed. Patient will return to clinic in 3 months for reevaluation of symptoms and plan of care. Patient has been instructed to contact the clinic with any concerns before the next appointment. Dr. Raygoza has reviewed this note and agrees with this plan of care. This note was dictated using voice recognition software and make contain errors or omissions. [facility] Disclaimer: The information contained in this section may have been updated after the patient was seen, as this information can be updated by other users. Medical History Heart failure with reduced ejection fraction Pulmonary emphysema Morbid obesity Stable, unchanged, difficulty obtaining GLP-1 recommended by PCP Hyperglycemia Encounter for screening for malignant neoplasm of lung Dyspnea on exertion Smoking greater than 30 pack years Morbid obesity 2 pound weight gain, waiting for Wegovy approval Surgical History History of cardiac cath History of lumbar surgery History of tubal ligation History of cholecystectomy Family History Other Cancer Social History Smoking Status: Current every day smoker tobacco type: cigarettes packs per day: 1 alcohol intake: never substance use type: denies use current occupational status: other Travel in the last 8 weeks: None household members: other housing: other marital status: current occupational exposures/hazards: No caffeine: Yes
== END 2023-08-01 23:59 | disposition home or self-care (01) ==
PROVIDERS: PCP Internal Medicine; Visit Provider Nurse Practitioner Family
DX: M51.16 Intervertebral disc disorders with radiculopathy, lumbar region (principal); M79.604 Pain in right leg; M79.18 Myalgia, other site
CPT/HCPCS: 99212; G0463

== ENCOUNTER 2023-09-01 14:08 | Outpatient (POV) | payer OTHER, SELFPAY ==
--- NOTE | 2023-09-01 14:36 | A.OFFVIS_ITS ---
[facility] Pain Management SOAP Note Subjective:: Is a pleasant 58-year-old female who presents today for 1 month follow-up. Today she rates her pain an 8 out of 10. Patient denies any new trauma or injury. She does state over the last week or so she feels like she has had more pain. Patient was given a prescription of baclofen 5 mg twice a day however she states she really did not seem to notice much improvement. She states she still continues to have the chronic pain throughout her low back. Patient has been tried on tramadol however did not really notice significant relief. Patient was also given Tylenol 3 for bronchitis however she states that she did not know that that was for her bronchitis when it was prescribed to her from her PCP and so she really never took many of them. Her Dein has been reviewed and is appropriate. Review of Systems: General: No recent weight changes, no fever, no sleep disturbances Respiratory: No cough, no shortness of air, no recurring pulmonary infections Cardiovascular/peripheral vascular: No chest pain, no palpitations, no edema, no shortness of breath Gastrointestinal: No new onset incontinence, normal bowel movements reported Genitourinary: No new onset incontinence Musculoskeletal: Low back pain Psychiatric: [Normal mood/affect] Neurological: [Denies weakness in extremities], [denies balance issues] Objective:: Physical Exam: General: Alert and oriented x3, no acute distress, pleasant and cooperative Lungs: Respirations even and unlabored, symmetrical chest expansion Eyes: PERRL Musculoskeletal: Flexion and extension of lumbar [spine] somewhat guarded secondary to pain, [antalgic gait noted] Neurological: Speech clear, no gross sensory deficit Assessment:: Degenerative disc disease of lumbar spine with lumbar radiculopathy symptoms, right leg pain, right buttocks pain Plan:: Patient did recently just pick pack worker another prescription of the baclofen 5 mg twice a day. I have counseled the patient that she can take 2 tablets and see if that makes any additional improvement. Patient was also counseled that the Tylenol 3 is for pain however it does also help in times of bronchitis to depress the cough reflex. Patient does state that she still has this medication. I have discussed with her to try it between now and her next visit and see if she notices more improvement than what the tramadol has been doing. Patient will return to clinic in 3 weeks for reevaluation of symptoms and plan of care. Patient has been instructed to contact the clinic with any concerns before the next appointment. Dr. Raygoza has reviewed this note and agrees with this plan of care. This note was dictated using voice recognition software and make contain errors or omissions. [facility] Disclaimer: The information contained in this section may have been updated after the patient was seen, as this information can be updated by other users. Medical History Heart failure with reduced ejection fraction Pulmonary emphysema Morbid obesity Stable, unchanged, difficulty obtaining GLP-1 recommended by PCP Hyperglycemia Encounter for screening for malignant neoplasm of lung Dyspnea on exertion Smoking greater than 30 pack years Morbid obesity 2 pound weight gain, waiting for Wegovy approval Surgical History History of cardiac cath History of lumbar surgery History of tubal ligation History of cholecystectomy Family History Other Cancer Social History Smoking Status: Current every day smoker tobacco type: cigarettes packs per day: 1 alcohol intake: never substance use type: denies use current occupational status: other Travel in the last 8 weeks: None household members: other housing: other marital status: current occupational exposures/hazards: No caffeine: Yes
[2023-09-01 15:10] VITALS: BP 125/60; PULSE 89; RESP 18; O2SAT 97; BMI 42.9
== END 2023-09-01 23:59 | disposition home or self-care (01) ==
LOC: SC.PAIN 14:08
PROVIDERS: PCP Internal Medicine; Visit Provider Nurse Practitioner Family
DX: M51.16 Intervertebral disc disorders with radiculopathy, lumbar region (principal); M79.604 Pain in right leg; M79.18 Myalgia, other site
CPT/HCPCS: 99212; G0463

== ENCOUNTER 2023-09-21 14:22 | Outpatient (POV) | payer OTHER, SELFPAY ==
--- NOTE | 2023-09-21 14:26 | EXP.PAIN.SOA ---
[facility] Disclaimer: The information contained in this section may have been updated after the patient was seen, as this information can be updated by other users. Medical History Heart failure with reduced ejection fraction Pulmonary emphysema Morbid obesity Stable, unchanged, difficulty obtaining GLP-1 recommended by PCP Hyperglycemia Encounter for screening for malignant neoplasm of lung Dyspnea on exertion Smoking greater than 30 pack years Morbid obesity 2 pound weight gain, waiting for Wegovy approval Surgical History History of cardiac cath History of lumbar surgery History of tubal ligation History of cholecystectomy Family History Other Cancer Social History Smoking Status: Current every day smoker tobacco type: cigarettes packs per day: 1 alcohol intake: never substance use type: denies use current occupational status: other Travel in the last 8 weeks: None household members: other housing: other marital status: current occupational exposures/hazards: No caffeine: Yes PM Subjective & Objective Subjective Subjective:: Patient is a pleasant 58-year-old female who presents today for 3-week follow-up. Today she rates her pain an 7 out of 10. Patient denies any new trauma or injury. She does state that she continues to have some low back pain with right leg pain. Patient does state that the baclofen 10 mg twice a day does seem to help at least take the edge off. Patient did also try the Tylenol 3 between our last visit now and states it did seem to help better than the tramadol however she typically just takes it around bedtime because it does make her little bit more tired. She does state however this does seem to help give her better sleep. Her Edin has been reviewed and is appropriate. Review of Systems: General: No recent weight changes, no fever, no sleep disturbances Respiratory: No cough, no shortness of air, no recurring pulmonary infections Cardiovascular/peripheral vascular: No chest pain, no palpitations, no edema, no shortness of breath Gastrointestinal: No new onset incontinence, normal bowel movements reported Genitourinary: No new onset incontinence Musculoskeletal: Low back pain Psychiatric: [Normal mood/affect] Neurological: [Denies weakness in extremities], [denies balance issues] Pain at rest (0-10 scale): 7 Objective Objective:: Physical Exam: General: Alert and oriented x3, no acute distress, pleasant and cooperative Lungs: Respirations even and unlabored, symmetrical chest expansion Eyes: PERRL Musculoskeletal: Flexion and extension of lumbar [spine] somewhat guarded secondary to pain, [antalgic gait noted] Neurological: Speech clear, no gross sensory deficit Has patient had previous pain injection?: No Conservative treatment options previously tried: Home exercise plan Length of treatment: Longer than 6 weeks and Prescription medications Length of treatment: Longer than 6 weeks Meds Home Medications and Allergies Home Medications Medication Instructions Recorded Confirmed Type atorvastatin 20 mg tablet (Lipitor) 20 mg PO DAILY Cholesterol 04/28/17 09/21/23 History citalopram 20 mg tablet (Celexa) 20 mg PO DAILY Anxiety 04/28/17 09/21/23 History meloxicam 15 mg tablet 15 mg PO DAILY Arthritis 04/28/17 09/21/23 History buspirone 10 mg tablet 10 mg PO DAILY . 02/28/20 09/21/23 History pantoprazole 40 mg tablet,delayed 40 mg PO HS GERD 02/28/20 09/21/23 History release albuterol sulfate 90 mcg/actuation 2 puff inhalation QID PRN 11/22/22 09/21/23 Rx aerosol inhaler (ProAir HFA) shortness of breath or wheezing 90 days #8.5 grams cetirizine 10 mg tablet 10 mg PO DAILY 02/10/23 09/21/23 History sacubitril 24 mg-valsartan 26 mg 1 tab PO BID #60 tabs 04/05/23 09/21/23 Rx tablet (Entresto) bisoprolol fumarate 5 mg tablet 5 mg PO DAILY 05/19/23 09/21/23 History aspirin 81 mg tablet,delayed See Rx Instructions .Route 06/01/23 09/21/23 Rx release .COMPLEX #90 tabs empagliflozin 10 mg tablet 10 mg PO DAILY #30 tabs 06/29/23 09/21/23 Rx (Jardiance) tramadol 50 mg tablet 50 mg PO BID #60 tabs 07/06/23 09/21/23 Rx furosemide 20 mg tablet (Lasix) 20 mg PO DAILY #30 tabs 07/11/23 09/21/23 Rx baclofen 5 mg tablet 5 mg PO BID #28 tabs 08/01/23 09/21/23 Rx spironolactone 25 mg tablet See Rx Instructions .Route 08/29/23 09/21/23 Rx .COMPLEX #90 tabs New Prescriptions to Start Prescriptions: Allergies Allergy/AdvReac Type Severity Reaction Status Date / Time azithromycin AdvReac Abdominal Verified 08/10/23 14:00 Pain ciprofloxacin [From Cipro] AdvReac Abdominal Verified 08/10/23 14:00 Pain Assessment and Plan *Assessment and plan (1) Lumbar radiculopathy: Status: Acute Category: Medical Code(s): M54.16 - Radiculopathy, lumbar region (2) Degenerative disc disease, lumbar: Status: Acute Category: Medical Code(s): M51.36 - Other intervertebral disc degeneration, lumbar region Plan I will refill the patient's baclofen 10 mg and change it to 3 times daily and provide a 3-month supply of this medication along with sending in a prescription of Tylenol 3 twice a day with a 1 month supply. Patient does not take the Tylenol 3 except in times of severe pain. Patient will return to clinic in 3 months for reevaluation of symptoms and plan of care. Risks and benefits of the medication have been explained in detail to the patient. The patient does understand the risk of dependence on the medication when given over a prolonged period. Patient has been advised of risks of oversedation with the prescribed medication. Narcan has been offered to the paitent in the event of oversedation. Patient has been advised that a family member should also be educated regarding administration of Narcan. The patient has been advised to consult with his/her primary care provider and pharmacist regarding drug-drug interaction of medications currently prescribed. Patient has been prescribed a controlled substance after being counseled on the medication, medication safety, and possible side effects. Opioid contract was reviewed and signed by the patient, and that they have agreed to all of the terms set forth by our compliance program. Patient has been instructed to contact the clinic with any concerns before the next appointment. Dr. Raygoza has reviewed this note and agrees with this plan of care. This note was dictated using voice recognition software and make contain errors or omissions.
[2023-09-21 14:36] VITALS: BP 103/83; PULSE 86; RESP 18; O2SAT 97; BMI 42.0
== END 2023-09-21 23:59 | disposition home or self-care (01) ==
PROVIDERS: PCP Internal Medicine; Visit Provider Nurse Practitioner Family
DX: G89.29 Other chronic pain (principal); M54.16 Radiculopathy, lumbar region; M51.36 Other intervertebral disc degeneration, lumbar region
CPT/HCPCS: 99212; G0463

== ENCOUNTER 2023-12-26 13:38 | Outpatient (POV) | payer OTHER, SELFPAY ==
[2023-12-26 15:23] VITALS: BP 129/81; PULSE 81; RESP 18; O2SAT 98; BMI 42.9
--- NOTE | 2023-12-26 15:56 | A.OFFVIS_ITS ---
[facility] Disclaimer: The information contained in this section may have been updated after the patient was seen, as this information can be updated by other users. Medical History Heart failure with reduced ejection fraction Pulmonary emphysema Morbid obesity Stable, unchanged, difficulty obtaining GLP-1 recommended by PCP Hyperglycemia Encounter for screening for malignant neoplasm of lung Dyspnea on exertion Smoking greater than 30 pack years Morbid obesity 2 pound weight gain, waiting for Wegovy approval Surgical History History of cardiac cath History of lumbar surgery History of tubal ligation History of cholecystectomy Family History Other Cancer Social History Smoking Status: Current every day smoker tobacco type: cigarettes packs per day: 1 alcohol intake: never substance use type: denies use current occupational status: other Travel in the last 8 weeks: None household members: other housing: other marital status: current occupational exposures/hazards: No caffeine: Yes PM Subjective & Objective Subjective Subjective:: Patient is a pleasant 58-year-old female who presents today for 3-month follow- up. Today she rates her pain a 7 out of 10. She denies any new trauma or injury. Patient states she still continues to have her chronic pain throughout her low back that does radiate into her right lower extremity with numbness and tingling. Patient did previously have a right transforaminal epidural that was very painful and did not provide significant relief in the past. Patient states she is just very leery about doing any other injections due to this. Patient has been tried on baclofen 10 mg twice a day and Tylenol 3. She states that she really does not use these that often that she did not notice a huge difference overall. Patient does not need any refills. Her Edin has been reviewed and is appropriate. Review of Systems: General: No recent weight changes, no fever, no sleep disturbances Respiratory: No cough, no shortness of air, no recurring pulmonary infections Cardiovascular/peripheral vascular: No chest pain, no palpitations, no edema, no shortness of breath Gastrointestinal: No new onset incontinence, normal bowel movements reported Genitourinary: No new onset incontinence Musculoskeletal: Low back pain Psychiatric: [Normal mood/affect] Neurological: [Denies weakness in extremities], [denies balance issues] Pain at rest (0-10 scale): 7 Objective Objective:: Physical Exam: General: Alert and oriented x3, no acute distress, pleasant and cooperative Lungs: Respirations even and unlabored, symmetrical chest expansion Eyes: PERRL Musculoskeletal: Flexion and extension of lumbar [spine] somewhat guarded secondary to pain, [antalgic gait noted] Neurological: Speech clear, no gross sensory deficit Has patient had previous pain injection?: No Conservative treatment options previously tried: Home exercise plan Length of treatment: Longer than 6 weeks Meds Home Medications and Allergies Home Medications ?Medication ?Instructions ?Recorded ?Confirmed ?Type buspirone 10 mg tablet 10 mg PO DAILY . 02/28/20 12/26/23 History pantoprazole 40 mg tablet,delayed 40 mg PO HS GERD 02/28/20 12/26/23 History release aspirin 81 mg tablet,delayed See Rx Instructions .Route 06/01/23 12/26/23 Rx release .COMPLEX #90 tabs spironolactone 25 mg tablet See Rx Instructions .Route 08/29/23 12/26/23 Rx .COMPLEX #90 tabs acetaminophen 300 mg-codeine 30 mg 1 tab PO BID PRN pain #60 tabs 09/21/23 12/26/23 Rx tablet baclofen 10 mg tablet 10 mg PO TID #90 tabs 09/21/23 12/26/23 Rx cetirizine 10 mg tablet See Rx Instructions .Route 09/21/23 12/26/23 Rx .COMPLEX #30 tabs furosemide 20 mg tablet (Lasix) 20 mg PO DAILY PRN Fluid 09/22/23 12/26/23 History sacubitril 24 mg-valsartan 26 mg 1 tab PO BID #60 tabs 09/26/23 12/26/23 Rx tablet (Entresto) empagliflozin 10 mg tablet See Rx Instructions .Route 10/19/23 12/26/23 Rx (Jardiance) .COMPLEX #90 tabs nitrofurantoin 100 mg PO Q12H 7 days #14 caps 10/27/23 12/26/23 Rx monohydrate/macrocrystals 100 mg capsule (Macrobid) fluconazole 150 mg tablet 150 mg PO Q3D 2 doses #2 tabs 08/22/24 10/14/24 Rx citalopram 20 mg tablet See Rx Instructions .Route 11/09/23 12/26/23 Rx .COMPLEX #90 tabs meloxicam 15 mg tablet See Rx Instructions .Route 11/09/23 12/26/23 Rx .COMPLEX #90 tabs atorvastatin 20 mg tablet See Rx Instructions .Route 11/28/23 12/26/23 Rx .COMPLEX #90 tabs bisoprolol fumarate 5 mg tablet See Rx Instructions .Route 11/28/23 12/26/23 Rx .COMPLEX #90 tabs albuterol sulfate 90 mcg/actuation 2 puff inhalation QID PRN 12/01/23 12/26/23 Rx aerosol inhaler (Ventolin HFA) shortness of breath or wheezing #8.5 grams budesonide-formoterol HFA 80 1 inh inhalation BID For asthma 12/01/23 12/26/23 Rx mcg-4.5 mcg/actuation aerosol #10.2 grams inhaler New Prescriptions to Start Prescriptions: Allergies Allergy/AdvReac Type Severity Reaction Status Date / Time azithromycin AdvReac Abdominal Verified 12/01/23 16:04 Pain ciprofloxacin [From Cipro] AdvReac Abdominal Verified 12/01/23 16:04 Pain Assessment and Plan *Assessment and plan (1) Right leg pain: Status: Acute Category: Medical Code(s): M79.604 - Pain in right leg (2) Lumbar radiculopathy: Status: Acute Category: Medical Code(s): M54.16 - Radiculopathy, lumbar region (3) Degenerative disc disease, lumbar: Status: Acute Category: Medical Code(s): M51.36 - Other intervertebral disc degeneration, lumbar region Plan I did discuss at length with the patient that she may benefit from a straightforward approach of the lumbar epidural. Risk and benefits were discussed with the patient and we will follow-up with this at future visits. Patient will return to clinic in 3 months for reevaluation of symptoms and plan of care. Patient has been instructed to contact the clinic with any concerns before the next appointment. Dr. Raygoza has reviewed this note and agrees with this plan of care. This note was dictated using voice recognition software and make contain errors or omissions. All injections are used with Lidocaine or Bupivacaine and Depo Medrol.
== END 2023-12-26 23:59 | disposition home or self-care (01) ==
LOC: SC.PAIN 13:39
PROVIDERS: PCP Internal Medicine; Visit Provider Nurse Practitioner Family
DX: M79.604 Pain in right leg (principal); M51.16 Intervertebral disc disorders with radiculopathy, lumbar region; F17.210 Nicotine dependence, cigarettes, uncomplicated; E66.01 Morbid (severe) obesity due to excess calories; Z68.41 Body mass index [BMI] 40.0-44.9, adult; Z79.899 Other long term (current) drug therapy
CPT/HCPCS: 99212; G0463

== ENCOUNTER 2024-04-11 15:01 | Outpatient (POV) | payer OTHER, SELFPAY ==
--- NOTE | 2024-04-11 15:46 | A.OFFVIS_ITS ---
[facility] Disclaimer: The information contained in this section may have been updated after the patient was seen, as this information can be updated by other users. Medical History Heart failure with reduced ejection fraction Pulmonary emphysema Morbid obesity Stable, unchanged, difficulty obtaining GLP-1 recommended by PCP Hyperglycemia Encounter for screening for malignant neoplasm of lung Dyspnea on exertion Smoking greater than 30 pack years Morbid obesity 2 pound weight gain, waiting for Wegovy approval Surgical History History of cardiac cath History of lumbar surgery History of tubal ligation History of cholecystectomy Family History Other Cancer Social History Smoking Status: Current every day smoker tobacco type: cigarettes packs per day: 1 alcohol intake: never substance use type: denies use current occupational status: other Travel in the last 8 weeks: None household members: other housing: other marital status: current occupational exposures/hazards: No caffeine: Yes PM Subjective & Objective Subjective Subjective:: Patient is a pleasant 58-year-old female who presents today for 3-month follow- up. Today she rates her pain a 6 out of 10. She denies any new trauma or injury. She does state that she continues to have the chronic low back pain that does go into her right leg. Patient does state that she feels like it has progressively worsened and has a lot more numbness that goes down into that extremity. Patient states that she generally sleeps on her side however can only do this for about 5 minutes before she has to change positions due to the numbing. Patient was prescribed baclofen 10 mg 3 times a day in her last office and states that this is really helped and feels like this is a good option for her. Patient was also prescribed Tylenol 3 however she states she is really not use this and only feels like it just helps her sleep been times that it is really worse. Patient would like refills on her baclofen however states she does not need any other refills. Patient was tried on compounded cream however only got minimal improvement. Her Edin has been reviewed and is appropriate. Review of Systems: General: No recent weight changes, no fever, no sleep disturbances Respiratory: No cough, no shortness of air, no recurring pulmonary infections Cardiovascular/peripheral vascular: No chest pain, no palpitations, no edema, no shortness of breath Gastrointestinal: No new onset incontinence, normal bowel movements reported Genitourinary: No new onset incontinence Musculoskeletal: Low back pain, right leg pain Psychiatric: [Normal mood/affect] Neurological: [Denies weakness in extremities], [denies balance issues] Pain at rest (0-10 scale): 6 Objective Objective:: Physical Exam: General: Alert and oriented x3, no acute distress, pleasant and cooperative Lungs: Respirations even and unlabored, symmetrical chest expansion Eyes: PERRL Musculoskeletal: Flexion and extension of lumbar [spine] somewhat guarded secondary to pain, [antalgic gait noted] Neurological: Speech clear, no gross sensory deficit Has patient had previous pain injection?: No Conservative treatment options previously tried: Prescription medications Length of treatment: Longer than 12 weeks Meds Home Medications and Allergies Home Medications ?Medication ?Instructions ?Recorded ?Confirmed ?Type acetaminophen 300 mg-codeine 30 mg 1 tab PO BID PRN pain #60 tabs 09/21/23 04/04/24 Rx tablet empagliflozin 10 mg tablet See Rx Instructions .Route 10/19/23 04/04/24 Rx (Jardiance) .COMPLEX #90 tabs citalopram 20 mg tablet See Rx Instructions .Route 11/09/23 04/04/24 Rx .COMPLEX #90 tabs meloxicam 15 mg tablet See Rx Instructions .Route 11/09/23 04/04/24 Rx .COMPLEX #90 tabs bisoprolol fumarate 5 mg tablet See Rx Instructions .Route 11/28/23 04/04/24 Rx .COMPLEX #90 tabs albuterol sulfate 90 mcg/actuation 2 puff inhalation QID PRN 12/01/23 04/04/24 Rx aerosol inhaler (Ventolin HFA) shortness of breath or wheezing #8.5 grams pantoprazole 40 mg tablet,delayed See Rx Instructions .Route 02/06/24 04/04/24 Rx release .COMPLEX #90 tabs aspirin 81 mg tablet,delayed See Rx Instructions .Route 03/29/24 04/04/24 Rx release .COMPLEX #90 tabs atorvastatin 20 mg tablet See Rx Instructions .Route 03/29/24 04/04/24 Rx .COMPLEX #90 tabs sacubitril 24 mg-valsartan 26 mg 1 tab PO BID #60 tabs 03/29/24 04/04/24 Rx tablet (Entresto) spironolactone 25 mg tablet See Rx Instructions .Route 03/29/24 04/04/24 Rx .COMPLEX #90 tabs baclofen 10 mg tablet 10 mg PO TID #90 tabs 04/04/24 Rx buspirone 10 mg tablet 10 mg PO DAILY . 04/04/24 04/04/24 History furosemide 20 mg tablet (Lasix) 20 mg PO DAILY Fluid 04/04/24 04/04/24 History montelukast 10 mg tablet 10 mg PO HS #90 tabs 04/04/24 04/04/24 Rx prednisone 10 mg tablet 10 mg PO DAILY #7 tabs 04/04/24 04/04/24 Rx New Prescriptions to Start Prescriptions: Allergies Allergy/AdvReac Type Severity Reaction Status Date / Time azithromycin AdvReac Abdominal Verified 04/04/24 13:51 Pain ciprofloxacin (From Cipro) AdvReac Abdominal Verified 04/04/24 13:51 Pain Assessment and Plan *Assessment and plan (1) Lumbar radiculopathy: Status: Acute Category: Medical Code(s): M54.16 - Radiculopathy, lumbar region (2) Degenerative disc disease, lumbar: Status: Chronic Category: Medical Code(s): M51.369 - Other intervertebral disc degeneration, lumbar region without mention of lumbar back pain or lower extremity pain Plan I did discuss with the patient that I do believe she would still benefit from a lumbar epidural however patient had 1 in the past that was very painful and is still unsure if she wants to try another 1. I will refill the patient's baclofen and also send in a new prescription of lidocaine 5% patches. Patient will return to clinic in 3 months for reevaluation of symptoms and plan of care. Patient has been instructed to contact the clinic with any concerns before the next appointment. Dr. Raygoza has reviewed this note and agrees with this plan of care. This note was dictated using voice recognition software and make contain errors or omissions. All injections are used with Lidocaine, Bupivacaine and Depo Medrol. Occasionally urine drug screen is needed to verify patient's compliance with our office pain contract. This is ordered based off specific treatments related to chronic pain with the potential to abuse certain medications.
[2024-04-11 16:04] VITALS: BP 109/57; PULSE 76; RESP 16; O2SAT 97; BMI 42.9
== END 2024-04-11 23:59 | disposition home or self-care (01) ==
PROVIDERS: PCP Internal Medicine; Visit Provider Nurse Practitioner Family
DX: M51.16 Intervertebral disc disorders with radiculopathy, lumbar region (principal); F17.210 Nicotine dependence, cigarettes, uncomplicated; Z79.899 Other long term (current) drug therapy
CPT/HCPCS: 99212; G0463

== ENCOUNTER 2024-06-14 10:27 | Outpatient (CLI) | payer OTHER, SELFPAY ==
--- NOTE | 2024-06-14 10:32 | XR_ITS ---
FINAL REPORT CLINICAL HISTORY: Shortness of breath x3 days hx asthma but states she isn't wheezing just c/o SOA COMPARISON: 06/15/2022 FINDINGS: No acute pulmonary density is evident. There is no evidence of effusion or other pleural disease. The mediastinum has a normal appearance. The cardiac silhouette is unremarkable. IMPRESSION: Unremarkable chest exam. Reviewed, Interpreted and Dictated by Cheryle Loredo MD Transcribed by Reba Hough Authenticated and [facility]
[2024-06-14 12:32] LABS: Anion Gap 14.4 mEq/L (5-15); Blood Urea Nitrogen 14 mg/dl (7-17); Calcium 9.4 mg/dl (8.4-10.2); Carbon Dioxide 26 mmol/L (22.0-30.0); Chloride 104 mmol/L (98-107); Estimated Glomerular Filt Rate 64 ml/min (>60); GFR (African American) 78 ML/MIN (>60); Glucose 92 mg/dl (74-100); Potassium 4.4 mmoL/L (3.5-5.1); Sodium 140 mmol/L (136-145)
--- NOTE | 2024-06-14 13:00 | CT_ITS ---
FINAL REPORT TECHNIQUE: Thin section axial CT with contrast with multiplanar reconstruction This study was performed with techniques to keep radiation doses as low as reasonably achievable, (ALARA). Individualized dose reduction techniques using automated exposure control or adjustment of mA and/or kV according to the patient''s size were employed. CLINICAL HISTORY: Shortness of air COMPARISON: None FINDINGS: CTA CHEST: Pulmonary vessels enhance in normal fashion without evidence of embolism. Thoracic aorta shows no dissection or aneurysm. No pulmonary mass or infiltrate is present. There is no significant pleural effusion. There is no significant pericardial effusion. No mediastinal or hilar adenopathy is present. IMPRESSION: 1. No evidence of pulmonary embolism 2. No acute lung disease Reviewed, Interpreted and Dictated by Cheryle Loredo MD Transcribed by Siobhan Monroy Authenticated and . [facility]
[2024-06-14] MEDS: 0.9 % SODIUM CHLORIDE 50 ML VIAL 40 ML IV (13:24)
[2024-06-14] MEDS: SODIUM CHLORIDE 0.9% 10ML SYR (RAD ONLY) 10 ML IV (13:25)
[2024-06-14] MEDS: IOPAMIDOL-370 (76%);100ML BOTTLE 70 ML IV (13:25)
== END 2024-06-14 23:59 | disposition home or self-care (01) ==
PROVIDERS: PCP Internal Medicine; Visit Provider Internal Medicine
DX: R06.02 Shortness of breath (principal); J44.9 Chronic obstructive pulmonary disease, unspecified; I50.20 Unspecified systolic (congestive) heart failure
CPT/HCPCS: 71046; 71275; 80048; Q9967

== ENCOUNTER 2024-07-04 15:07 | Outpatient (CLI) | payer OTHER, SELFPAY ==
[2024-07-04 16:27] LABS: Basophils # 0.1 K/mm3 (0-0.2); Basophils % 0.6 % (0.1-2.0); Eosinophils # 0.1 Kmm3 (0.0-0.4); Eosinophils % 1.3 % (0.1-12.0); Hematocrit 44.4 % (37.0-47.0); Hemoglobin 14.4 g/dL (12.2-16.2); Lymphocytes # 2.3 K/mm3 (0.7-4.5); Lymphocytes % 27.5 % (10-50); Mean Corpuscular HGB Conc 32.4 g/dL (31.8-35.4); Mean Corpuscular Hemoglobin 28.2 pg (27.0-31.2); Mean Corpuscular Volume 87.1 fl (81-99); Mean Platelet Volume 10.9 fl (7.4-10.4); Monocytes # 0.7 K/mm3 (0.1-1.0); Monocytes % 8.3 % (1.7-9.3); Neutrophils # 5.3 K/mm3 (1.8-7.8); Neutrophils % 62.1 % (37.0-80.0); Nucleated Red Blood Cells # 0 10^3/uL; Nucleated Red Blood Cells % 0 %; Platelet Count 246 K/mm3 (142-424); Red Cell Distribution Width 13.1 % (11.5-17.5); Red Cell Distribution Width-SD 41.5 fL; White Blood Count 8.5 K/mm3 (4.8-10.8)
[2024-07-04 17:55] LABS: Albumin Level 4.3 g/dl (3.5-5.0)
[2024-07-04 17:56] LABS: Chloride 109 mmol/L (98-107); Potassium 4.5 mmoL/L (3.5-5.1); Sodium 141 mmol/L (136-145)
[2024-07-04 17:58] LABS: Bilirubin,Unconjugated 0.5 mg/dL (0.0-1.1); Blood Urea Nitrogen 14 mg/dl (7-17); Estimated Glomerular Filt Rate 64 ml/min (>60); GFR (African American) 78 ML/MIN (>60)
[2024-07-04 17:59] LABS: Alanine Aminotransferase 34 U/L (12-78); Alkaline Phosphatase 130 U/L (38-126); Anion Gap 13.5 mEq/L (5-15); Aspartate Amino Transferase 34 U/L (14-36); Bilirubin,Direct 0.2 mg/dl (0.0-0.4); Bilirubin,Indirect 0.5 mg/dL (0.0-0.9); Bilirubin,Total 0.7 mg/dl (0.2-1.3); Calcium 9.4 mg/dl (8.4-10.2); Carbon Dioxide 23 mmol/L (22.0-30.0); Cholesterol 145 mg/dl (140-200); Glucose 85 mg/dl (74-100); HDL Cholesterol 36 mg/dl (40-60); Magnesium 1.8 mg/dl (1.6-2.3); Total Protein,Serum 7.1 g/dl (6.3-8.2); Triglycerides 141 mg/dl (30-150); VLDL Cholesterol 28 mg/dL (0-40)
[2024-07-04 18:10] LABS: Direct LDL Cholesterol 83.94 mg/dL (100-129)
[2024-07-04 18:17] LABS: Free T4 (Free Thyroxine) 1.02 ng/dl (0.78-2.19)
[2024-07-04 18:29] LABS: Thyroid Stimulating Hormone 2.41 uIU/mL (0.465-4.68)
== END 2024-07-04 23:59 | disposition home or self-care (01) ==
LOC: LAB 15:07
PROVIDERS: PCP Internal Medicine; Visit Provider Nurse Practitioner
DX: R06.02 Shortness of breath (principal); I11.9 Hypertensive heart disease without heart failure; I25.10 Atherosclerotic heart disease of native coronary artery without angina pectoris; R73.9 Hyperglycemia, unspecified; R06.09 Other forms of dyspnea; R53.83 Other fatigue; I27.20 Pulmonary hypertension, unspecified; E78.5 Hyperlipidemia, unspecified; I42.9 Cardiomyopathy, unspecified; F17.210 Nicotine dependence, cigarettes, uncomplicated
CPT/HCPCS: 36415; 80048; 80061; 80076; 83735; 84439; 84443; 85025

== ENCOUNTER 2024-07-06 14:37 | Outpatient (POV) | payer OTHER, SELFPAY ==
[2024-07-06 15:05] VITALS: BP 118/71; PULSE 74; RESP 14; O2SAT 98; BMI 42.9
--- NOTE | 2024-07-06 15:41 | EXP.PAIN.SOA ---
[facility] Disclaimer: The information contained in this section may have been updated after the patient was seen, as this information can be updated by other users. Medical History Heart failure with reduced ejection fraction Pulmonary emphysema Morbid obesity Stable, unchanged, difficulty obtaining GLP-1 recommended by PCP Hyperglycemia Encounter for screening for malignant neoplasm of lung Dyspnea on exertion Smoking greater than 30 pack years Morbid obesity 2 pound weight gain, waiting for Wegovy approval Surgical History History of cardiac cath History of lumbar surgery History of tubal ligation History of cholecystectomy Family History Other Cancer Social History Smoking Status: Current every day smoker tobacco type: cigarettes packs per day: 1 alcohol intake: never substance use type: denies use current occupational status: other Travel in the last 8 weeks: None household members: other housing: other marital status: current occupational exposures/hazards: No caffeine: Yes PM Subjective & Objective Subjective Subjective:: Patient is a pleasant 58-year-old female who presents today for 3-month follow-up. Today she rates her pain a 7 out of 10. Patient denies any new trauma or injury. She states she still continues to have the chronic back pain. She states that nothing really seems to make much difference. Patient has had a few different injections however only got temporary relief however caused a lot of pain in the moment with those procedures. Patient has also been tried on multiple medications including baclofen 10 mg 3 times a day, Tylenol 3, lidocaine patches and compounded cream. Patient states nothing seems to really make a difference and that the Tylenol 3 seem to cause more fatigue that she discontinued this. Patient states she just has chronic pain that just never seems to improve. Her Edin has been reviewed and is appropriate. Review of Systems: General: No recent weight changes, no fever, no sleep disturbances Respiratory: No cough, no shortness of air, no recurring pulmonary infections Cardiovascular/peripheral vascular: No chest pain, no palpitations, no edema, no shortness of breath Gastrointestinal: No new onset incontinence, normal bowel movements reported Genitourinary: No new onset incontinence Musculoskeletal: Chronic back pain Psychiatric: [Normal mood/affect] Neurological: [Denies weakness in extremities], [denies balance issues] Pain at rest (0-10 scale): 7 Objective Objective:: Physical Exam: General: Alert and oriented x3, no acute distress, pleasant and cooperative Lungs: Respirations even and unlabored, symmetrical chest expansion Eyes: PERRL Musculoskeletal: Flexion and extension of lumbar [spine] somewhat guarded secondary to pain, [antalgic gait noted] Neurological: Speech clear, no gross sensory deficit Has patient had previous pain injection?: No Conservative treatment options previously tried: Home exercise plan Length of treatment: Longer than 12 weeks Meds Home Medications and Allergies Home Medications ?Medication ?Instructions ?Recorded ?Confirmed ?Type empagliflozin 10 mg tablet See Rx Instructions .Route 10/19/23 07/06/24 Rx (Jardiance) .COMPLEX #90 tabs pantoprazole 40 mg tablet,delayed See Rx Instructions .Route 02/06/24 07/06/24 Rx release .COMPLEX #90 tabs aspirin 81 mg tablet,delayed See Rx Instructions .Route 03/29/24 07/06/24 Rx release .COMPLEX #90 tabs atorvastatin 20 mg tablet See Rx Instructions .Route 03/29/24 07/06/24 Rx .COMPLEX #90 tabs sacubitril 24 mg-valsartan 26 mg 1 tab PO BID #60 tabs 03/29/24 07/06/24 Rx tablet (Entresto) spironolactone 25 mg tablet See Rx Instructions .Route 03/29/24 07/06/24 Rx .COMPLEX #90 tabs buspirone 10 mg tablet 10 mg PO DAILY . 04/04/24 07/06/24 History baclofen 10 mg tablet 10 mg PO TID #90 tabs 04/11/24 07/06/24 Rx lidocaine 5 % topical patch 1 patch topical DAILY #30 ea 04/11/24 07/06/24 Rx azelastine 137 mcg (0.1 %) nasal 2 spray intranasal BID #30 mL 04/12/24 07/06/24 Rx spray albuterol sulfate 90 mcg/actuation 2 puff inhalation QID PRN 05/01/24 07/06/24 Rx aerosol inhaler (Ventolin HFA) shortness of breath or wheezing #8.5 grams budesonide-formoterol HFA 80 2 puff inhalation BID #10.2 grams 05/01/24 07/06/24 Rx mcg-4.5 mcg/actuation aerosol inhaler codeine 10 mg-guaifenesin 100 mg/5 See Rx Instructions PO Q6H PRN 05/02/24 07/06/24 Rx mL oral liquid cough #120 mL loratadine 10 mg tablet 10 mg PO DAILY #90 tabs 05/02/24 07/06/24 Rx bisoprolol fumarate 5 mg tablet See Rx Instructions .Route 05/09/24 07/06/24 Rx .COMPLEX #90 tabs citalopram 20 mg tablet See Rx Instructions .Route 05/09/24 07/06/24 Rx .COMPLEX #90 tabs meloxicam 15 mg tablet See Rx Instructions .Route 05/09/24 07/06/24 Rx .COMPLEX #90 tabs bumetanide 1 mg tablet 1 mg PO DAILY #33 tabs 07/04/24 07/06/24 Rx New Prescriptions to Start Prescriptions: Allergies Allergy/AdvReac Type Severity Reaction Status Date / Time azithromycin AdvReac Abdominal Verified 06/14/24 10:10 Pain ciprofloxacin (From Cipro) AdvReac Abdominal Verified 06/14/24 10:10 Pain Assessment and Plan *Assessment and plan (1) Lumbar nerve root impingement: Status: Chronic Category: Medical Code(s): M54.16 - Radiculopathy, lumbar region (2) Lumbar radiculopathy: Status: Acute Category: Medical Code(s): M54.16 - Radiculopathy, lumbar region (3) Degenerative disc disease, lumbar: Status: Chronic Category: Medical Code(s): M51.369 - Other intervertebral disc degeneration, lumbar region without mention of lumbar back pain or lower extremity pain (4) Chronic pain: Status: Acute Category: Medical Code(s): G89.29 - Other chronic pain Plan Patient continues to experience significant pain throughout her low back. I did discuss with the patient that there are other medications we could try however I do believe she would benefit most from an intrathecal pain pump trial. Risk and benefits were discussed with the patient and at this time she would like time to think on it. She was counseled that we would order psychological evaluation first and if she was deemed an appropriate candidate could proceed forward with the trial at a later date. Patient was given a pamphlet during today's visit. We will follow-up with her in 1 month. Patient has been instructed to contact the clinic with any concerns before the next appointment. Dr. Raygoza has reviewed this note and agrees with this plan of care. This note was dictated using voice recognition software and make contain errors or omissions. All injections are used with Lidocaine, Bupivacaine and dexamethasone. Occasionally urine drug screen is needed to verify patient's compliance with our office pain contract. This is ordered based off specific treatments related to chronic pain with the potential to abuse certain medications.
== END 2024-07-06 23:59 | disposition home or self-care (01) ==
LOC: SC.PAIN 14:38
PROVIDERS: PCP Internal Medicine; Visit Provider Nurse Practitioner Family
DX: M51.16 Intervertebral disc disorders with radiculopathy, lumbar region (principal); G89.29 Other chronic pain; F17.210 Nicotine dependence, cigarettes, uncomplicated; Z79.899 Other long term (current) drug therapy
CPT/HCPCS: 99212; G0463

== ENCOUNTER 2024-07-17 12:25 | Outpatient (CLI) | payer OTHER, SELFPAY ==
--- NOTE | 2024-07-17 | CA_ITS ---
APPROVED REPORT Exam: Pharmacologic Technologist: Avani Trimble Ht: 5 ft 4 in Wt: 250 lbs BSA: 2.15 m2 HR: 71 bpm BP: 137/59 mmHg Stress Test Details Test: Lexiscan HR Resting HR: 71 bpm Max Heart Rate (APMHR): 162.993785 bpm Max HR Achieved: 102 bpm Target HR (85% APMHR): 137.649556 bpm % of APMHR: 62.96 Recovery HR: 80 bpm BP Resting BP: 137.0/59.0 mmHg Max BP: 137.0/59.0 mmHg Recovery BP: 116.0/67.0 mmHg ECG Resting ECG: Normal sinus rhythm Stress ECG Conclusion Symptoms: Dyspnea, nausea Arrhythmias/Ectopy: - ST-T Changes: Less than [address] depression. Conclusion: EKG unremarkable due to Lexiscan infusion. Electronically signed by : Erica Wilkins MD 07/18/2024 13:03:15
[2024-07-17] MEDS: SODIUM CHLORIDE 0.9% 10ML SYR (RAD ONLY) 10 ML IV ×2 (12:45→14:30)
--- NOTE | 2024-07-17 13:00 | NM_ITS ---
APPROVED REPORT Exam: Nuclear Stress Test Indication: fm kurtis c.p., sob Patient Location: Outpatient Stress Tech: Avani Trimble NM Tech:Brittany FongDOUG RT (R)(N)(M) Ht: 5 ft 4 in Wt: 250 lbs Bra Size: 44ddd HR: 71 bpm BP: 137/59 mmHg BSA: 2.15 m2 TID: 1.17 BMI: 42.9 History: fm alex hullpAkbar, sob Procedure: Patient received 0.4 mg of intravenous Lexiscan, resting heart rate 71 bpm, resting blood pressure 137/59 mmHg, with Lexiscan maximum heart rate achieved was 100 bpm which is % of the maximum predicted heart rate and blood pressure was 131/68 mmHg. With Lexiscan, patient denied any complaint of chest pain. Cardiac Stress and Resting SPECT Images: Cardiac Stress and Resting SPECT images were obtained using technetium 99m Myoview 31.2 mCi stress and 10.54 mCi at rest. Resting and stress imaging in supine and prone position demonstrate a medium sized, moderate, partially reversible perfusion defect in the anterior LV wall. Gated imaging demonstrates low-normal global LV systolic function. There is mild hypokinesis of the anterior LV wall. LVEF is calculated at 51%. Conclusion: Medium sized, moderate, partially reversible perfusion defect in the anterior LV wall. Findings are suggestive of partial reversible ischemia. Gated imaging demonstrates low-normal global LV systolic function. There is mild hypokinesis of the anterior LV wall. LVEF is calculated at 51%. Electronically signed by : Erica Wilkins MD 07/18/2024 12:57:37
[2024-07-17] MEDS: REGADENOSON 0.4MG/5ML SYRINGE 0.4 MG IV (14:30)
[2024-07-17] MEDS: ISOTOPE MYOVIEW (PER STUDY) 1 DOSE IV (16:43)
== END 2024-07-17 23:59 | disposition home or self-care (01) ==
LOC: RAD 12:26
PROVIDERS: PCP Internal Medicine; Visit Provider Nurse Practitioner
DX: I25.10 Atherosclerotic heart disease of native coronary artery without angina pectoris (principal); R06.02 Shortness of breath; R73.9 Hyperglycemia, unspecified; R06.09 Other forms of dyspnea
CPT/HCPCS: 78452; 93017; 93018; A9502; J2785

== ENCOUNTER 2024-07-23 12:48 | Outpatient (CLI) | payer OTHER, SELFPAY ==
--- NOTE | 2024-07-23 12:55 | CA_ITS ---
APPROVED REPORT EXAM: Comprehensive 2D, Doppler, and color-flow Echocardiogram with contrast Water Taxi Captain: Khadijah Sharif CRT Ht: 5 ft 4 in Wt: 253lbs BSA: 2.16 BP: 118/62 mmHg Indications: COPD, Shortness of Breath, ObesitY EF 40-50% ECHO 06-24-22 TDE due to body habitus, limited images definity given Echo Enhancing Agent Indication: Endocardial border delineation Agent(s) / Amount(s) Used: Definity 2 cc Comments: Definity given M-Mode Dimensions RVDd 2.70 cm (0.9-2.6) LA Diam 3.54 cm (1.9-4.0) LVDd 5.09 cm (3.5-5.7) LVDs 3.46 cm (3.5-5.7) IVSd 1.03 cm (0.6-1.1) PWd 1.03 cm (0.6-1.1) EF (Teich) 59.80% FS 32.00% EDV (Teich) 123.20 mL TAPSE 2.15 (<1.7) ESV (Teich) 49.50 mL LV Diastology E Decel Time 150 (160-240 msec) E/A Ratio 0.81 MED A' 10.40 cm/s LAT A' 7.60 cm/s Aortic Valve AO Peak GR. 5.70 mmHg Mitral Valve MV E Max Nate. 60.0 (40-130 cm/s) MV A Velocity 74.0 (40-130 cm/s) E/A Ratio 0.81 MV PHT 44.0 ms Pulmonary Valve PV Peak Velocity 109.0 (50-150 cm/s) Tricuspid Valve TR P. Velocity 109.00 cm/s RAP Estimate 10.00 mmHg RVSP 14.70 mmHg Left Ventricle The left ventricle is normal size. The left ventricular systolic function is low normal. There is increased overall thickness. There is normal LV segmental wall motion. The left ventricular diastolic function is normal. No left ventricle thrombus noted on this study. LVEF is 50%. Right Ventricle Right ventricle is mildly dilated. The right ventricular systolic function is normal. Atria The left atrium size is normal. The right atrium size is normal. The interatrial septum is not well-visualized. Aortic Valve The aortic valve is mildly thickened. There is no aortic valvular stenosis. No aortic regurgitation is present. Mitral Valve The mitral valve is normal in structure. No evidence of mitral valve stenosis. Trace mitral regurgitation. Tricuspid Valve Tricuspid valve is grossly normal in structure and function. There is insufficient TR jet to estimate RVSP. Pulmonic Valve The pulmonary valve is normal in structure. Trace pulmonic regurgitation. Great Vessels The aortic root is normal in size. IVC is normal in size and collapses >50% with inspiration. Pericardium There is no pericardial effusion. Other Information Study Quality: Technically Difficult Conclusion Technically difficult study due to poor acoustic windows. Low-normal LV systolic function (LVEF 50%). Mild RV dilation with normal RV function. No significant valvular stenosis or regurgitation. Electronically signed by : Erica Wilkins MD 07/26/2024 13:14:16
[2024-07-23] MEDS: DEFINITY US ECHO CONTRAST 2ML INJ 2 MG IV (14:11)
== END 2024-07-23 23:59 | disposition home or self-care (01) ==
LOC: RT 12:48
PROVIDERS: PCP Internal Medicine; Visit Provider Nurse Practitioner
DX: I11.9 Hypertensive heart disease without heart failure (principal); I25.10 Atherosclerotic heart disease of native coronary artery without angina pectoris; R73.9 Hyperglycemia, unspecified; I27.20 Pulmonary hypertension, unspecified; E78.5 Hyperlipidemia, unspecified; I42.9 Cardiomyopathy, unspecified; J44.9 Chronic obstructive pulmonary disease, unspecified; E66.9 Obesity, unspecified
CPT/HCPCS: 93306; Q9957

== ENCOUNTER 2024-08-08 08:22 | Day surgery (SDC) | payer OTHER, SELFPAY ==
[2024-08-08] VITALS (10 sets, daily range): BP systolic 79–112; BP diastolic 44–68; PULSE 68–90; RESP 16–18; O2SAT 91–96; BMI 42.9
--- NOTE | 2024-08-08 07:40 | IR_ITS ---
APPROVED REPORT Patient Location: Outpatient PROCEDURES Left heart catheterization Left ventriculogram Selective coronary angiogram INDICATION Abnormal Myoview, Angina pectoris Informed consent was obtained prior to the procedure. COMPLICATIONS none Estimated Blood Loss: less than 10ml TECHNIQUE One percent lidocaine used to anesthetize the right anterior aspect of the wrist. The right radial artery was accessed via the Seldinger technique. A 6 Nepali sheath was placed in the right radial artery. 2.5 mg of Verapamil, 800 mcg of nitroglycerin, 1mg Lidocaine and 5000 U Heparin were given through the arterial sheath. The JL3 catheter was also used to perform left heart catheterization, left ventriculogram and selective coronary angiogram. At the end of the procedure the sheath was removed good hemostasis was achieved using Traclet band, patient was transferred to the postop holding area in stable condition. ANGIOGRAPHIC RESULTS The left main artery Normal The left anterior descending artery Normal The circumflex artery Normal The right coronary artery Dominant normal The PERAZA ventriculogram reveals Normal 60% The left ventricular end-diastolic pressure 20 to 25 mmHg IMPRESSION Normal coronary arteries Normal ejection fraction Elevated LVEDP consistent with diastolic dysfunction PLAN 1. Medical management for diastolic dysfunction 2. Consider sleep study Electronically signed by : Gallo Brown MD 08/08/2024 10:23:47
[2024-08-08 09:05] LABS: Basophils % 0.4 % (0.1-2.0); Eosinophils # 0.2 Kmm3 (0.0-0.4); Eosinophils % 1.8 % (0.1-12.0); Hematocrit 44.6 % (37.0-47.0); Hemoglobin 13.9 g/dL (12.2-16.2); Immature Granulocytes # 0.03 10^3uL; Immature Granulocytes % 0.3 %; Lymphocytes # 2.7 K/mm3 (0.7-4.5); Lymphocytes % 28.6 % (10-50); Mean Corpuscular HGB Conc 31.2 g/dL (31.8-35.4); Mean Corpuscular Hemoglobin 27.6 pg (27.0-31.2); Mean Corpuscular Volume 88.5 fl (81-99); Mean Platelet Volume 10.5 fl (7.4-10.4); Monocytes # 0.9 K/mm3 (0.1-1.0); Monocytes % 9.4 % (1.7-9.3); Neutrophils # 5.6 K/mm3 (1.8-7.8); Neutrophils % 59.5 % (37.0-80.0); Nucleated Red Blood Cells # 0 10^3/uL; Nucleated Red Blood Cells % 0 %; Platelet Count 218 K/mm3 (142-424); Red Blood Count 5.04 M/mm3 (4.20-5.40); Red Cell Distribution Width 13.2 % (11.5-17.5); Red Cell Distribution Width-SD 42.8 fL; White Blood Count 9.4 K/mm3 (4.8-10.8)
[2024-08-08 09:25] LABS: Anion Gap 11.7 mEq/L (5-15); Blood Urea Nitrogen 17 mg/dl (7-17); Calcium 8.8 mg/dl (8.4-10.2); Carbon Dioxide 25 mmol/L (22.0-30.0); Chloride 108 mmol/L (98-107); Creatinine Clearance Estimated 66 mL/min (50-200); Estimated Glomerular Filt Rate 74 ml/min (>60); GFR (African American) 89 ML/MIN (>60); Glucose 99 mg/dl (74-100); Potassium 4.7 mmoL/L (3.5-5.1); Sodium 140 mmol/L (136-145)
[2024-08-08] MEDS: LIDOCAINE 1% 10ML MDV 10 ML IJ (10:12)
[2024-08-08] MEDS: NITROGLYCERIN 800MCG/8ML SYR (CATH LAB) 800 MCG IA (10:12)
[2024-08-08] MEDS: diphenhydrAMINE 50MG/ML VIAL 50 MG IV (10:13)
[2024-08-08] MEDS: 0.9 % SODIUM CHLORIDE 500 ML 25 ML IV (10:13)
[2024-08-08] MEDS: VERAPAMIL 2.5MG/ML 2ML VIAL 2.5 MG IV (10:13)
[2024-08-08] MEDS: HEPARIN 1,000 UNITS/500ML NS (CATH LAB) 3000 UNIT IV (10:13)
[2024-08-08] MEDS: MIDAZOLAM HCL 1MG/ML 5ML VIAL 1 MG IV (10:14)
[2024-08-08] MEDS: FENTANYL 100MCG/2ML VIAL 50 MCG IV (10:14)
[2024-08-08] MEDS: HEPARIN 1,000 UNITS/ML 10ML VIAL (CATH LAB) 5000 UNIT IV (10:14)
[2024-08-08] MEDS: IOPAMIDOL-370 (76%);100ML BOTTLE 60 ML IV (14:42)
== END 2024-08-08 12:55 | disposition home or self-care (01) ==
PROVIDERS: PCP Internal Medicine; Visit Provider Internal Medicine
PROC: 4A023N7 Measurement of Cardiac Sampling and Pressure, Left Heart, Percutaneous Approach (ICD-10-PCS; CPT 93452; principal; 2024-08-08 08:15)
DX: I25.118 Atherosclerotic heart disease of native coronary artery with other forms of angina pectoris (principal); E66.01 Morbid (severe) obesity due to excess calories; Z68.41 Body mass index [BMI] 40.0-44.9, adult; J44.9 Chronic obstructive pulmonary disease, unspecified; F17.210 Nicotine dependence, cigarettes, uncomplicated; R93.1 Abnormal findings on diagnostic imaging of heart and coronary circulation; R06.02 Shortness of breath; Z79.51 Long term (current) use of inhaled steroids; Z79.85 Long-term (current) use of injectable non-insulin antidiabetic drugs; I42.8 Other cardiomyopathies; I44.7 Left bundle-branch block, unspecified; G47.30 Sleep apnea, unspecified
CPT/HCPCS: 80048; 85025; 93458; 99152; C1725; C1769; J1200; J1644; J3010; Q9967

== ENCOUNTER 2024-08-21 07:54 | Outpatient (CLI) | payer OTHER, SELFPAY ==
--- OUTSIDE RECORDS SUMMARY | 2024-08-21 07:59 | XMS_ITS | Clinical Summary ---
Author Organization Healthcare Address [address] [place] [address] Care Team Providers Care Certified Nutritionist Name Role Phone Geoffrey Brar MD Primary Care Provider [phone] Social History Tobacco Use Types Packs/Day Years Used Date Smoking Tobacco: Never Assessed Comments Unknown Sex and Gender Information Value Date Recorded Sex Assigned at Not on file Legal Sex Female 8:14 PM EDT Gender Identity Not on file Sexual Orientation Not on file Plan of Treatment Health Maintenance Due Date Last Done Comments [facility]-Depression Screening 1965 [facility]-/Child/Adol SDOH Screenings 1965 [facility]- SDOH Screenings 08/29/1983 [facility]-Adult SDOH Screenings 08/29/1983 [facility]-Hepatitis B Vaccines (1 of 3 - 19+ 3-dose series) 1984 [facility]-Pap Smear 1986 [facility]-Cervical Cancer Screening 08/29/1995 [facility]-HPV/Cotest 08/29/1995 [facility]-DTaP,Tdap,and Td Vaccines (1 - Tdap) 05/17/1996 05/16/1996 CT Colonography 2010 Colonoscopy 2010 FIT-DNA 2010 FIT 2010 FOBT 2010 Sigmoidoscopy 2010 [facility]-Colorectal Cancer Screening 2010 [facility]-Pneumococcal Vaccine: 50+ Years (1 of 1 - PCV) 08/29/2015 [facility]-Zoster Vaccines (2 of 2) 10/27/2021 09/01/2021 [id number] Vaccine ( season) 2023 07/15/2021, 01/21/2021, 06/25/2020, Additional history exists [facility]-Influenza Vaccine (Season Ended) 2024 HPV Vaccines Aged Out No longer eligi ble based on patient's age to complete this topic [facility]-HIB Vaccines Aged Out No longer e ligible based on patient's age to complete this topic [facility]-Hepatitis A Vaccines Aged Out No longer eligible based on patient's age to complete this topic [facility]-IPV Vaccines Aged Out No longer e ligible based on patient's age to complete this topic [facility]-Rotavirus Vaccines Aged Out No lo nger eligible based on patient's age to complete this topic Insurance [employer] Care Teams Certified Nutritionist Relationship Specialty Start Date End Date Geoffrey Brar MD [address] [place] [address] PCP - General 06/24/22
[2024-08-21 09:07] LABS: Chloride 105 mmol/L (98-107); Potassium 3.8 mmoL/L (3.5-5.1); Sodium 140 mmol/L (136-145)
[2024-08-21 09:10] LABS: Anion Gap 12.8 mEq/L (5-15); Blood Urea Nitrogen 19 mg/dl (7-17); Calcium 9.7 mg/dl (8.4-10.2); Carbon Dioxide 26 mmol/L (22.0-30.0); Estimated Glomerular Filt Rate 74 ml/min (>60); GFR (African American) 89 ML/MIN (>60); Glucose 115 mg/dl (74-100)
== END 2024-08-21 23:59 | disposition home or self-care (01) ==
LOC: LAB 07:56
PROVIDERS: PCP Internal Medicine; Visit Provider Nurse Practitioner Family
DX: I25.10 Atherosclerotic heart disease of native coronary artery without angina pectoris (principal); I51.89 Other ill-defined heart diseases
CPT/HCPCS: 36415; 80048

== ENCOUNTER 2024-11-26 10:39 | Outpatient (CLI) | payer OTHER, SELFPAY ==
--- OUTSIDE RECORDS SUMMARY | 2024-11-26 10:44 | XMS_ITS | Clinical Summary ---
Author Organization Healthcare Address [address] [place] [address] Care Team Providers Care Mixer Whipped Topping Name Role Phone Geoffrey Brar MD Primary Care Provider [phone] Social History Tobacco Use Types Packs/Day Years [...] [facility]-Zoster Vaccines (2 of 2) 10/27/2021 09/01/2021 [id number] Vaccine ( season) 2024 07/15/2021, 01/21/2021, 06/25/2020, Additional history exists [facility]-Influenza Vaccine (#1) 2024 HPV Vaccines Aged Out No longer [...] Insurance [employer] Care Teams Mixer Whipped Topping Relationship Specialty Start Date End Date Geoffrey Brar MD [address] [place] [address] PCP - General 06/24/22
--- OUTSIDE RECORDS SUMMARY | 2024-11-26 10:44 | XMS_ITS | Clinical Summary ---
Author Organization [facility] Address [address] [place] [address] Care Team Providers Care Fish Flipper Name Role Phone Geoffrey Brar MD Primary Care Provider [phone] Allergies Active Allergy Reactions Criticality Noted Date Comments Ciprofloxacin GI Intolerance 05/31/2023 Methylprednisolone GI Intolerance 05/31/2023 Stomach cramps Medications Entresto 24-26 MG tablet 05/03/2023 Active bisoprolol (ZEBeta) 5 MG tablet 03/10/2023 Active Aspirin Low Dose 81 MG EC tablet 05/03/2023 Act piyush spironolactone (ALDACTONE) 25 MG tablet 05/03/2023 Active pantoprazole (PROTONIX) 40 MG EC tablet 03/11/2023 Active meloxicam (MOBIC) 15 MG tablet 05/16/2023 Active citalopram (CeleXA) 20 MG tablet 05/16/2023 Active atorvastatin (LIPITOR) 20 MG tablet Take 1 tablet by mouth Daily. Active busPIRone (BUSPAR) 10 MG tablet Take 1 tablet by mouth 3 (Three) Times a Day. Active Active Problems No known active problems Social History Tobacco Use Types Packs/Day Years Used Date Smoking Tobacco: Every Day Cigarettes Smokeless Tobacco: Never Tobacco Cessation:Ready to Q uit: No; Counseling Given: Yes Alcohol Use Standard Drinks/Week Comments Never 0 (1 standard drink = 0.6 oz pur e alcohol) Abuse Screen Answer Date Recorded Unsafe at Home or Work/School Not on file Feels Threatened by Someone? Not on file 02/2023 Does Anyone Keep You from Co ntacting Others or Doint Things Outside the Home? Not on file 12/23/2022 Physical Sign of Abuse Present Not on file 1 Housing Stability Answer Date Recorded Current Living Arrangements Not on file 12/12 Potentially Unsafe Housing Conditions Not on narciso e 12/23/2022 Family and Community Support Answer Viktor e Recorded Help with Day-to-Day Activities Not on file 12/23/2022 Lonely or Isolated Not on file 12/23/2022 Employment Answer Date Recorded Do you want help finding or keeping work or a tamika b? Not on file 12/23/2022 Disabilities Answer Date Recorded Concentrating, Remembering, or Making Decisions Difficulty Not on file 12/23/2022 Doing Errands Independently Difficulty Not on fi le 12/23/2022 Education Answer Date Recorded Help with school or training? Not on file Preferred Language Not on file 12/23/2022 Comments Unknown Sex and Gender Information Value Date Recorded Sex Assigned at Not on file Legal Sex Female 5:40 PM EDT Gender Identity Not on file Sexual Orientation Not on file Last Filed Vital Signs Vital Sign Reading Time Taken Comments Blood Pressure - - Pulse - - Temperature 36.2 C (97.1 F) 05/31/2023 12:03 PM EDT Respiratory Rate - - Oxygen Saturation - - Inhaled Oxygen Concentration - - Weight 113 kg (249 lb) 05/31/2023 12:03 PM EDT Height 162.6 cm (5' 4 ) 05/31/2023 12:03 PM EDT Body Mass Index 42.74 05/31/2023 12:03 PM EDT Plan of Treatment Health Maintenance Due Date Last Done Comments Annual Gynecologic Pelvic an d Breast Exam 1965 Pneumococcal Vaccine 50+ (1 of 2 - PCV) 1984 MAMMOGRAM 2005 TDAP/TD VACCINES (2 - Tdap) 05/16/2006 05/16/1996 COLOGUARD 2010 COLON CANCER SCREENING 5 YEA R SIGMOIDOSCOPY 2010 COLONOSCOPY 2010 [address] CANCER SCREENING [address] CT COLONOGRAPHY 2010 FECAL OCCULT BLOOD TEST 2010 FIT Testing (1 year) 2010 ZOSTER VACCINE (2 of 2) 10/27/2021 09/01/2021 ANNUAL PHYSICAL 05/31/2023 HEPATITIS C SCREENING 05/31/2023 COVID-19 Vaccine (5 - 2024-2 6 season) 2024 07/15/2021, 01/21/2021, 06/25/2020, Additional history exists INFLUENZA VACCINE 12/12/2024 Insurance [facility] Care Teams Fish Flipper Relationship Specialty Start Date End Date Geoffrey Brar MD [address] [facility] [address] [place] [address] PCP - General Internal Medicine 05/18/23
[2024-11-26 12:25] LABS: Chloride 106 mmol/L (98-107); Potassium 4.3 mmoL/L (3.5-5.1); Sodium 139 mmol/L (136-145)
[2024-11-26 12:28] LABS: Blood Urea Nitrogen 18 mg/dl (7-17); Creatinine,Serum 0.80 mg/dl (0.52-1.04); Estimated Glomerular Filt Rate 73 ml/min (>60); GFR (African American) 89 ML/MIN (>60)
[2024-11-26 12:29] LABS: Anion Gap 13.3 mEq/L (5-15); Calcium 9.7 mg/dl (8.4-10.2); Carbon Dioxide 24 mmol/L (22.0-30.0); Glucose 106 mg/dl (74-100)
== END 2024-11-26 23:59 | disposition home or self-care (01) ==
LOC: LAB 10:40
PROVIDERS: PCP Internal Medicine; Visit Provider Nurse Practitioner Family
DX: E78.5 Hyperlipidemia, unspecified (principal); I10 Essential (primary) hypertension
CPT/HCPCS: 36415; 80048

== ENCOUNTER 2025-01-30 10:44 | Outpatient (CLI) | payer OTHER, SELFPAY ==
--- NOTE | 2025-01-30 10:49 | CT_ITS ---
FINAL REPORT TECHNIQUE: CT examination of the paranasal sinuses was performed using axial images through the calvarium to the upper cervical region. Multiplanar imaging in the sagittal and coronal planes were subsequently performed. This study was performed with techniques to keep radiation doses as low as reasonably achievable (ALARA). Individualized dose reduction techniques using automated exposure control or adjustment of mA and/or kV according to the patient's size were employed. CLINICAL HISTORY: CHRONIC SINUSITIS/ALLERGIC RHINITIS COMPARISON: None FINDINGS: The paranasal sinuses are mostly well aerated. There is mild mucoperiosteal thickening in the middle cell of the sphenoid sinus, with a small air-fluid level consistent with acute and chronic sinusitis. The ostiomeatal complexes are unremarkable and the maxillary sinuses. There is no fracture. There are no air-fluid levels. IMPRESSION: Acute and chronic sinusitis in the middle cell of the sphenoid sinus. The remaining sinuses are normal in appearance. Reviewed, Interpreted and Dictated by Yovanny Rush MD Transcribed by Siobhan Monroy Authenticated and . [facility]
== END 2025-01-30 23:59 | disposition home or self-care (01) ==
LOC: RAD 10:44
PROVIDERS: PCP Internal Medicine; Visit Provider Allergy & Immunology
DX: J01.30 Acute sphenoidal sinusitis, unspecified (principal); J32.3 Chronic sphenoidal sinusitis; F17.219 Nicotine dependence, cigarettes, with unspecified nicotine-induced disorders; J30.1 Allergic rhinitis due to pollen; J30.89 Other allergic rhinitis
CPT/HCPCS: 70486